=== PATIENT | female | born 1930 | race Caucasian/White ===

== ENCOUNTER 2017-01-23 19:30 | Observation (INO) ==
[2017-01-23] MEDS ORDERED: 0.9 % Sodium Chloride 1,000 ML IVC ONE (19:42)
[2017-01-23 20:02] LABS: Basophils % 0.9 %; Eosinophils # 0.1 K/mcL (0.0-0.6); Eosinophils % 1.5 %; Hematocrit 36.6 % (35.3-44.9); Hemoglobin 11.9 g/dL (11.5-15.4); Immature Granulocytes % 0.2 % (0-4); Lymphocytes # 1.2 K/mcL (0.6-4.6); Lymphocytes % 26.4 %; Mean Corpuscular HGB Conc 32.5 g/dL (31.6-35.5); Mean Corpuscular Hemoglobin 26.7 pg (28.0-33.3); Mean Corpuscular Volume 82.1 fL (83.0-100.0); Mean Platelet Volume 9.8 fL (9.4-12.4); Monocytes # 0.4 K/mcL (0.0-1.3); Monocytes % 8.9 %; Neutrophils # 2.9 K/mcL (1.6-8.9); Platelet Count 180 K/mcL (140-400); Red Blood Count 4.46 M/mcL (3.82-4.97); Red Cell Distribution Width 14.7 % (11.5-14.5); Segmented Neutrophils % 62.1 %
[2017-01-23 20:12] LABS: Bilirubin,Urine Negative (Negative); Blood,Urine Negative (Negative); Clarity,Urine Cloudy (Clear); Color,Urine Yellow (Yellow); Glucose,Urine (UA) Normal (Normal); Ketones,Urine Negative (Negative); Leukocyte Esterase,Urine Negative (Negative); Nitrite,Urine Negative (Negative); PH,Urine 5.5 pH Units (5.0-8.0); Protein,Urine 30 mg/dL (Neg-Trace); Specific Gravity,Urine 1.018 (1.010-1.025); Urobilinogen,Urine Normal (Normal)
[2017-01-23 20:14] LABS: Bacteria,Urine None Seen per hpf (None-Few); Hyaline Casts,Urine None Seen per lpf (None-Few); RBC,Urine 0-3 per hpf (0-3); Squamous Epithelial Cell,Urine Moderate per lpf (None-Few); WBC,Urine 0-3 per hpf (0-3)
[2017-01-23 20:15] LABS: Alanine Aminotransferase 14 Units/L (0-55); Albumin 3.8 g/dL (3.5-5.0); Albumin/Globulin Ratio 1.2 (1.1-2.2); Alkaline Phosphatase 81 Units/L (38-126); Aspartate Amino Transferase 19 Units/L (5-34); BUN/Creatinine Ratio 15 (6-26); Bilirubin,Direct 0.2 mg/dL (0.0-0.5); Bilirubin,Indirect -0.1 mg/dL (0.0-1.2); Blood Urea Nitrogen 18 mg/dL (7-20); Calcium 9.6 mg/dL (8.6-10.8); Carbon Dioxide 21 mEq/L (19-29); Chloride 107 mEq/L (98-109); Globulin 3.1 g/dL (2.4-3.5); Glucose 113 mg/dL (70-99); Osmolality,Calculated 291 (280-300); Potassium 3.5 mEq/L (3.5-4.5); Sodium 139 mEq/L (136-145); Total Protein 6.9 g/dL (6.0-8.3); eGFR For African Americans 50 (> 60); eGFR For Non-African Americans 41 (> 60)
[2017-01-23 20:17] LABS: Bilirubin,Total < 0.1 mg/dL (0.2-1.2)
[2017-01-23 20:18] LABS: Prothrombin Time 10.9 Seconds (9.4-12.1)
[2017-01-23 20:20] LABS: Amphetamine Screen,Urine Negative ng/mL (Cutoff=1000); Barbiturate Screen,Urine Negative ng/mL (Cutoff=200); Benzodiazepines Screen,Urine Negative ng/mL (Cutoff=200); Cannabinoid Screen,Urine Negative ng/mL (Cutoff = 50); Cocaine Screen,Urine Negative ng/mL (Cutoff= 300); Opiate Screen,Urine Negative ng/mL (Cutoff=300); Phencyclidine Screen,Urine Negative ng/mL (Cutoff=25)
[2017-01-23 20:21] LABS: Activated Partial Thrombo Time 30.4 Seconds (26.0-36.0)
[2017-01-23 20:38] LABS: Thyroid Stimulating Hormone 3.363 mcIU/mL (0.350-4.840)
[2017-01-23] MEDS ORDERED: Aspirin 325 MG TABLET PO ONE (20:46)
--- NOTE | 2017-01-23 20:47 | Emergency Department Note ---
Disposition Clinical Impression: TIA (transient ischemic attack) Qualifiers: Transient cerebral ischemia type: unspecified Qualified Code(s): G45.9 - Transient cerebral ischemic attack, unspecified Disposition: Admitted As Inpatient Condition: Fair Altered Mental Status HPI - General Stated Complaint: Slurred Speech Time Seen by Provider: 01/23/17 19:37 Source: patient, family, EMS Mode of arrival: EMS Limitations: altered mental status Nursing Notes Reviewed: Yes Vital Signs Reviewed: Yes - History of Present Illness HPI Narrative: Patient was a home today several hours before arrival to family members noted she was little confused. They state this happened several times in the past month or so should be confused or last several hours and go away. She never had a workup in the past for TIA or stroke. MD complaint: confusion Onset (ago): hour(s) (2) Timing confirmed by: family member Pain Severity: mild Consistency of Symptoms: waxing and waning Associated symptoms: Reports: denies other symptoms - Related Data Allergies Allergy/AdvReac Type Severity Reaction Status Date / Time Penicillins Allergy Hives Verified 01/23/17 20:42 acetaminophen AdvReac Nausea Verified 01/23/17 20:42 [From Darvocet-N] codeine AdvReac Nausea Verified 01/23/17 20:42 propoxyphene AdvReac Nausea Verified 01/23/17 20:42 [From Darvocet-N] All systems ED: reviewed and negative except as stated. Constitutional: Denies: fever, chills, weakness Gastrointestinal: Denies: abdominal pain, nausea Past Medical History - Past Medical History Source: patient, old records reviewed, obtained from family, nursing notes reviewed Physical Exam - General Limitations: no limitations General appearance: alert, in no apparent distress - Head Head exam: atraumatic, normocephalic, normal inspection - Eye Eye exam: Present: normal appearance, PERRL, EOMI - Expanded Eye Exam Pupils: Left: reactive - ENT ENT exam: normal exam, normal oropharynx, mucous membranes moist - Expanded ENT Exam External ear exam: Present: normal external inspection Mouth exam: Present: normal external inspection Teeth exam: Present: normal inspection Throat exam: Present: normal inspection - Neck Neck exam: Present: normal inspection, full ROM, trachea midline - Chest Chest inspection: Present: normal inspection, symmetric chest wall rise - Respiratory Respiratory exam: Present: normal lung sounds bilaterally - Cardiovascular Cardiovascular exam: Present: regular rate, normal rhythm, normal heart sounds - Abdominal Exam Abdominal exam: Present: soft, Non-Tender. Absent: tenderness, distention, guarding, rebound, rigidity - Extremities Exam Extremities exam: Present: normal inspection, full ROM. Absent: tenderness, pedal edema - Expanded Upper Extremity Exam Shoulder exam: Present: normal inspection, full ROM Arm exam: Present: normal inspection, full ROM Elbow exam: Present: normal inspection, full ROM Forearm/Wrist exam: Present: normal inspection, full ROM Hand exam: Present: normal inspection, full ROM Vascular exam: Normal: capillary refill, radial pulse - Expanded Lower Extremity Exam Hip/Pelvis exam: Present: normal inspection, full ROM Upper leg exam: Present: normal inspection, full ROM Knee exam: Present: normal inspection, full ROM Lower leg exam: Present: normal inspection, full ROM Ankle exam: Present: normal inspection, full ROM Foot/toe exam: Present: normal inspection, full ROM Neurovascular/Tendon exam: Absent: motor deficit, sensory deficit, tendon deficit - Back Exam Back exam: Present: normal inspection, full ROM. Absent: tenderness - Neurological Exam Neurological exam: Present: alert, CN II-XII intact - Expanded Neurological Exam Patient oriented to: Present: person Cranial nerves: EOM function (II, III, IV, ): Normal, facial sensation (V): Normal, facial palsy (VII): Normal, gag reflex (IX): Normal, spinal accessory function (XI): Normal, tongue deviation (XII): Normal Motor strength - LUE: 5/5 Motor strength - RUE: 5/5 Motor strength - LLE: 5/5 Motor strength - RLE: 5/5 Coma Scale Eye Opening: Spontaneous Coma Scale Motor Response: Obeys Commands Coma Scale Verbal Response: Oriented Coma Scale Total: 15 - Psychiatric Psychiatric exam: Present: normal affect, normal mood - Skin Skin exam: Present: warm, dry, intact, normal color Course - Reevaluation(s) Reevaluation #1: Asians cognition returned to baseline during her ED stay gave her aspirin omit her to the hospital service for TIA workup Time: 21:21 Vital Signs Temperature 98.6 F 01/23/17 21:06 Pulse Rate 36 01/23/17 21:06 Respiratory Rate 16 01/23/17 21:06 Blood Pressure 191/96 01/23/17 21:06 O2 Sat by Pulse Oximetry 94 05/16/17 21:06 Temperature 98.6 F 01/23/17 21:06 Pulse Rate 36 01/23/17 21:06 Respiratory Rate 16 01/23/17 21:06 Blood Pressure 191/96 01/23/17 21:06 O2 Sat by Pulse Oximetry 94 01/23/17 21:06 Oxygen Delivery Oxygen Delivery Room Air Altered Mental Status - Differential Diagnosis Likely: altered mental status, delirium, dementia, hypoglycemia, hyponatremia, subarachnoid hemorrhage, sepsis - Medical Records Medical records reviewed: Yes I reviewed the patient's medical records. - Lab Data Lab results reviewed: Yes I reviewed the patient's lab results. Result diagrams: 01/23/17 19:50 01/23/17 19:50 Lab Results 01/23/17 01/23/17 01/23/17 Range/Units 19:39 19:50 19:50 WBC 4.7 (4.3-11.1) K/mcL RBC 4.46 (3.82-4.97) M/mcL Hgb 11.9 (11.5-15.4) g/dL Hct 36.6 (35.3-44.9) % MCV 82.1 L (83.0-100.0) fL MCH 26.7 L (28.0-33.3) pg MCHC 32.5 (31.6-35.5) g/dL RDW 14.7 H (11.5-14.5) % Plt Count 180 (140-400) K/mcL MPV 9.8 (9.4-12.4) fL Immature Gran % 0.2 (0-4) % Seg Neutrophils % 62.1 % Lymphocytes % 26.4 % Monocytes % 8.9 % Eosinophils % 1.5 % Basophils % 0.9 % Neutrophils # 2.9 (1.6-8.9) K/mcL Lymphocytes # 1.2 (0.6-4.6) K/mcL Monocytes # 0.4 (0.0-1.3) K/mcL Eosinophils # 0.1 (0.0-0.6) K/mcL Basophils # 0.0 (0.0-0.2) K/mcL PT 10.9 (9.4-12.1) Seconds INR 1.0 APTT 30.4 (26.0-36.0) Seconds Sodium (136-145) mEq/L Potassium (3.5-4.5) mEq/L Chloride (98-109) mEq/L Carbon Dioxide (19-29) mEq/L BUN (7-20) mg/dL Creatinine (0.57-1.11) mg/dL Est GFR ( Amer) (> 60) Est GFR (Non-Af Amer) (> 60) BUN/Creatinine Ratio (6-26) Glucose (70-99) mg/dL POC Glucose 103 H (58-89) Calculated Osmolality (280-300) Calcium (8.6-10.8) mg/dL Total Bilirubin (0.2-1.2) mg/dL Direct Bilirubin (0.0-0.5) mg/dL Indirect Bilirubin (0.0-1.2) mg/dL AST (5-34) Units/L ALT (0-55) Units/L Alkaline Phosphatase (38-126) Units/L Troponin I (0-0.03) ng/mL Serum Total Protein (6.0-8.3) g/dL Albumin (3.5-5.0) g/dL Globulin (2.4-3.5) g/dL Albumin/Globulin Ratio (1.1-2.2) TSH (0.350-4.840) mcIU/mL Urine Color (Yellow) Urine Clarity (Clear) Urine pH (5.0-8.0) pH Units Ur Specific [place] (1.010-1.025) Urine Protein (Neg-Trace) mg/dL Urine Glucose (UA) (Normal) mg/dL Urine Ketones (Negative) mg/dL Urine Blood (Negative) Urine Nitrite (Negative) Urine Bilirubin (Negative) Urine Urobilinogen (Normal) mg/dL Ur Leukocyte Esterase (Negative) Urine Microscopic RBC (0-3) per hpf Urine Microscopic WBC (0-3) per hpf Ur Squamous Epith Cells (None-Few) per lpf Urine Bacteria (None-Few) per hpf Hyaline Casts (None-Few) per lpf Ur Culture Indicated? (NO) Urine Opiates Screen (Caumrb=504) ng/mL Ur Barbiturates Screen (Cacasy=592) ng/mL Ur Phencyclidine Scrn (Cutoff=25) ng/mL Ur Amphetamines Screen (Vbwjwo=0363) ng/mL U Benzodiazepines Scrn (Ucyfxo=221) ng/mL Urine Cocaine Screen (Cutoff= 300) ng/mL U Marijuana (THC) Screen (Cutoff = 50) ng/mL 01/23/17 01/23/17 01/23/17 Range/Units 19:50 19:50 19:57 WBC (4.3-11.1) K/mcL RBC (3.82-4.97) M/mcL Hgb (11.5-15.4) g/dL Hct (35.3-44.9) % MCV (83.0-100.0) fL MCH (28.0-33.3) pg MCHC (31.6-35.5) g/dL RDW (11.5-14.5) % Plt Count (140-400) K/mcL MPV (9.4-12.4) fL Immature Gran % (0-4) % Seg Neutrophils % % Lymphocytes % % Monocytes % % Eosinophils % % Basophils % % Neutrophils # (1.6-8.9) K/mcL Lymphocytes # (0.6-4.6) K/mcL Monocytes # (0.0-1.3) K/mcL Eosinophils # (0.0-0.6) K/mcL Basophils # (0.0-0.2) K/mcL PT (9.4-12.1) Seconds INR APTT (26.0-36.0) Seconds Sodium 139 (136-145) mEq/L Potassium 3.5 (3.5-4.5) mEq/L Chloride 107 (98-109) mEq/L Carbon Dioxide 21 (19-29) mEq/L BUN 18 (7-20) mg/dL Creatinine 1.23 H (0.57-1.11) mg/dL Est GFR ( Amer) 50 L (> 60) Est GFR (Non-Af Amer) 41 L (> 60) BUN/Creatinine Ratio 15 (6-26) Glucose 113 H (70-99) mg/dL POC Glucose (58-89) Calculated Osmolality 291 (280-300) Calcium 9.6 (8.6-10.8) mg/dL Total Bilirubin < 0.1 L (0.2-1.2) mg/dL Direct Bilirubin 0.2 (0.0-0.5) mg/dL Indirect Bilirubin -0.1 L (0.0-1.2) mg/dL AST 19 (5-34) Units/L ALT 14 (0-55) Units/L Alkaline Phosphatase 81 (38-126) Units/L Troponin I 0.00 (0-0.03) ng/mL Serum Total Protein 6.9 (6.0-8.3) g/dL Albumin 3.8 (3.5-5.0) g/dL Globulin 3.1 (2.4-3.5) g/dL Albumin/Globulin Ratio 1.2 (1.1-2.2) TSH 3.363 (0.350-4.840) mcIU/mL Urine Color Yellow (Yellow) Urine Clarity Cloudy A (Clear) Urine pH 5.5 (5.0-8.0) pH Units Ur Specific [place] 1.018 (1.010-1.025) Urine Protein 30 H (Neg-Trace) mg/dL Urine Glucose (UA) Normal (Normal) mg/dL Urine Ketones Negative (Negative) mg/dL Urine Blood Negative (Negative) Urine Nitrite Negative (Negative) Urine Bilirubin Negative (Negative) Urine Urobilinogen Normal (Normal) mg/dL Ur Leukocyte Esterase Negative (Negative) Urine Microscopic RBC 0-3 (0-3) per hpf Urine Microscopic WBC 0-3 (0-3) per hpf Ur Squamous Epith Cells Moderate H (None-Few) per lpf Urine Bacteria None Seen (None-Few) per hpf Hyaline Casts None Seen (None-Few) per lpf Ur Culture Indicated? NO (NO) Urine Opiates Screen (Eehfmu=578) ng/mL Ur Barbiturates Screen (Fxvmdu=902) ng/mL Ur Phencyclidine Scrn (Cutoff=25) ng/mL Ur Amphetamines Screen (Csvysf=9604) ng/mL U Benzodiazepines Scrn (Nkswco=496) ng/mL Urine Cocaine Screen (Cutoff= 300) ng/mL U Marijuana (THC) Screen (Cutoff = 50) ng/mL 01/23/17 Range/Units 19:57 WBC (4.3-11.1) K/mcL RBC (3.82-4.97) M/mcL Hgb (11.5-15.4) g/dL Hct (35.3-44.9) % MCV (83.0-100.0) fL MCH (28.0-33.3) pg MCHC (31.6-35.5) g/dL RDW (11.5-14.5) % Plt Count (140-400) K/mcL MPV (9.4-12.4) fL Immature Gran % (0-4) % Seg Neutrophils % % Lymphocytes % % Monocytes % % Eosinophils % % Basophils % % Neutrophils # (1.6-8.9) K/mcL Lymphocytes # (0.6-4.6) K/mcL Monocytes # (0.0-1.3) K/mcL Eosinophils # (0.0-0.6) K/mcL Basophils # (0.0-0.2) K/mcL PT (9.4-12.1) Seconds INR APTT (26.0-36.0) Seconds Sodium (136-145) mEq/L Potassium (3.5-4.5) mEq/L Chloride (98-109) mEq/L Carbon Dioxide (19-29) mEq/L BUN (7-20) mg/dL Creatinine (0.57-1.11) mg/dL Est GFR ( Amer) (> 60) Est GFR (Non-Af Amer) (> 60) BUN/Creatinine Ratio (6-26) Glucose (70-99) mg/dL POC Glucose (58-89) Calculated Osmolality (280-300) Calcium (8.6-10.8) mg/dL Total Bilirubin (0.2-1.2) mg/dL Direct Bilirubin (0.0-0.5) mg/dL Indirect Bilirubin (0.0-1.2) mg/dL AST (5-34) Units/L ALT (0-55) Units/L Alkaline Phosphatase (38-126) Units/L Troponin I (0-0.03) ng/mL Serum Total Protein (6.0-8.3) g/dL Albumin (3.5-5.0) g/dL Globulin (2.4-3.5) g/dL Albumin/Globulin Ratio (1.1-2.2) TSH (0.350-4.840) mcIU/mL Urine Color (Yellow) Urine Clarity (Clear) Urine pH (5.0-8.0) pH Units Ur Specific [place] (1.010-1.025) Urine Protein (Neg-Trace) mg/dL Urine Glucose (UA) (Normal) mg/dL Urine Ketones (Negative) mg/dL Urine Blood (Negative) Urine Nitrite (Negative) Urine Bilirubin (Negative) Urine Urobilinogen (Normal) mg/dL Ur Leukocyte Esterase (Negative) Urine Microscopic RBC (0-3) per hpf Urine Microscopic WBC (0-3) per hpf Ur Squamous Epith Cells (None-Few) per lpf Urine Bacteria (None-Few) per hpf Hyaline Casts (None-Few) per lpf Ur Culture Indicated? (NO) Urine Opiates Screen Negative (Qwqadd=432) ng/mL Ur Barbiturates Screen Negative (Frkncf=839) ng/mL Ur Phencyclidine Scrn Negative (Cutoff=25) ng/mL Ur Amphetamines Screen Negative (Atojoa=6396) ng/mL U Benzodiazepines Scrn Negative (Agbilk=764) ng/mL Urine Cocaine Screen Negative (Cutoff= 300) ng/mL U Marijuana (THC) Screen Negative (Cutoff = 50) ng/mL - Radiology Data Radiology results reviewed: Yes I reviewed the patient's radiology results. - EKG Data EKG attestation: Yes I reviewed and interpreted this EKG. EKG shows normal: sinus rhythm Rate: normal (72) Rhythm: NSR Interpretation: nonspecific ST-T wave changes TPA Checklist - LKW: 3-4.5 hrs Add. Contraindications Patient/family understanding: The patient/family members have been counseled and understood the risk, benefit , and alternatives of treatment.
[2017-01-23] MEDS ORDERED: *HR* Labetalol 20 MG/4 ML SYRINGE IVP ONE (21:12)
[2017-01-23] MEDS ORDERED: Ondansetron 4 MG/2 ML VIAL IVP ONE (21:22)
[2017-01-23] MEDS ORDERED: Acetaminophen 325 MG TABLET PO PRN (22:27)
[2017-01-23] MEDS ORDERED: Naloxone 0.4 MG/ML INJ IVP PRN (22:27)
[2017-01-23] MEDS ORDERED: 0.9 % Sodium Chloride 1,000 ML IVC SCH (22:30)
--- NOTE | 2017-01-23 22:36 | Internal Med History&Physical ---
Date of Encounter: 01/23/17 Time of Encounter: 22:36 Assessment and Plan (1) TIA (transient ischemic attack) Current visit: Yes Status: Acute Patient reports episode of confusion and garbled speech after working outside in the sun earlier today. Symptoms have resolved. CT Head shows atrophy and moderate small vessel ischemic disease, but no acute intracranial abnormality. On exam, no pronator drift, strength equal bilaterally, cranial nerves intact, patient alert and oriented 3 with fluent speech. MRI head/brain bilateral carotid dopplers echocardiogram lipid panel with morning labs aspirin 81mg daily neurology consult. Qualifiers: Transient cerebral ischemia type: unspecified Qualified Code(s): G45.9 - Transient cerebral ischemic attack, unspecified (2) Hypertension Current visit: Yes Status: Acute Blood pressure elevated to 180s/80s. Continue home does of metoprolol. Qualifiers: Hypertension type: essential hypertension Qualified Code(s): I10 - Essential (primary) hypertension (3) CKD (chronic kidney disease) Current visit: Yes Status: Acute Patient reports history of CKD. No labs available for baseline. Cr of 1.23. 1L fluid bolus given in ED. 0.9NS at 75mL/hr. Recheck chemistry in the morning. Qualifiers: Chronic kidney disease stage: unspecified stage Qualified Code(s): N18.9 - Chronic kidney disease, unspecified (4) DVT prophylaxis Current visit: Yes Status: Acute anti-embolic stockings heparin 5000u SQ TID Internal Medicine - H&P: HPI Chief complaint: confusion, speech problem Admitted From: Emergency Dept Plans for Post Hospital Care: Home History of present illness: Ms. Diaz is a 86 year old female with hypertension, hypothyroid, coronary artery disease status post CABG in 2007, CKD who presented to the emergency department today with complaints of confusion and slurred speech. She reports yesterday and today she was working outside in her garden digging holes and planting tomato plants. She came inside today and a friend came over and patient reports she felt confused and like she could not understand anything her friend was saying. When she went to speak only mumbles came out and she was not able to articulate any words. Her symptoms resolved by the time she got to the emergency department. She denies any headache, lightheadedness, chest pain, palpitations, shortness of breath. She denies any fever, chills, sweats, body aches. Evaluation in the emergency department included a CT of the head which just showed atrophy and moderate small vessel ischemic disease, no acute intracranial abnormality. Chest x-ray showed no significant pulmonary findings. Creatinine was elevated at 1.23, consistent with her history of kidney disease. Troponin was negative at 0.00. EKG showed normal sinus rhythm. On exam, patient alert and oriented, in no acute distress. Speech was fluid, strength equal bilaterally, no pronator drift, cranial nerves intact. Past Med Surg Social Fam HX - Past Medical History Medical history: asthma, coronary artery disease, fibromyalgia, hypertension, kidney stones, renal disease, thyroid disease Psychiatric history: no psych history - Past Surgical History Surgical History: coronary bypass (CABG), hip replacement, hysterectomy - Social History Smoking Status: Former smoker Smokeless Tobacco Status: No Alcohol use: none Drug use: none - Family History Father Living Status: Age at : 86 Hx Family Endocrine Disorder: Yes (DM) Mother Hx Family Cancer: Yes (SPINAL) Internal Medicine - H&P: Meds Levothyroxine [Synthroid] 112 mcg PO QAM 01/23/17 [History] Metoprolol [Lopressor] 25 mg PO BID 01/23/17 [History] Allergies Penicillins Allergy (Verified 01/23/17 20:42) Hives acetaminophen [From Darvocet-N] Adverse Reaction (Verified 01/23/17 20:42) Nausea codeine Adverse Reaction (Verified 01/23/17 20:42) Nausea propoxyphene [From Darvocet-N] Adverse Reaction (Verified 01/23/17 20:42) Nausea All Systems PM: A 10-system review of systems was performed and is negative for pertinent findings except as documented above in the HPI. - Constitutional Constitutional: no chills, no fever(s), no night sweats - EENT Eyes: no change in vision, no discharge, no pain, no photophobia Ears: no ear discharge, no ear pain, no tinnitus Nose, mouth and throat: no dysphagia, no nasal discharge, no neck pain, no sore throat - Cardiovascular Cardiovascular ROS IM: no chest pain, no diaphoresis, no dyspnea, no lightheadedness, no palpitations, no syncope - Respiratory Respiratory: no cough, no dyspnea, no wheezing, no excessive phlegm production - Gastrointestinal Gastrointestinal: no abdominal pain, no diarrhea, no hematemesis, no hematochezia, no melena, no nausea, no vomiting - Genitourinary Genitourinary: no change in urinary stream, no dysuria, no flank pain, no hematuria - Musculoskeletal Musculoskeletal ROS IM: no numbness, no tingling - Integumentary Integumentary IM: no rash, no unusual bruising - Neurological Neurological ROS: abnormal speech, confusion, no convulsions, no focal weakness , no numbness, no tingling, no tremor(s) - Hematologic/Lymphatic Hematologic/Lymphatic: no easy bruising - Constitutional Vitals: Temp Pulse Resp BP Pulse Ox 98.6 F 73 18 184/82 92 01/23/17 21:06 01/23/17 21:32 01/23/17 21:48 01/23/17 21:48 01/23/17 21:32 General appearance: Present: A&O X 3 - Head Head exam: Present: atraumatic, normocephalic - Eye Eye exam: Present: PERRL, conjuntiva pink, sclera anicteric Pupils: Present: PERRL - Neck Neck exam general surgery: Present: supple, trachea midline. Absent: lymphadenopathy - Respiratory Respiratory exam: Present: CTAB. Absent: accessory muscle use, rales, rhonchi, wheezes - Cardiovascular Cardiovascular exam: Present: RRR, +S1, +S2. Absent: diastolic murmur, gallop, rubs, systolic murmur - GI/Abdominal GI/Abdominal exam: Present: normal bowel sounds, soft, no peritoneal signs. Absent: distended, tenderness - Extremities Exam Extremities exam: Present: warm, radial pulses palpable and symetrical. Absent : calf tenderness, cyanotic, pedal edema - Neurological Exam Neurological exam: Present: CN II-XII intact, oriented X3, no focal deficits. Absent: pronater drift, facial droop, speech deficit - Skin Skin exam: Present: dry, intact Internal Med - H&P Results - Labs CBC & Chem 7: 01/23/17 19:50 01/23/17 19:50 Labs: All Lab Results (24 Hours) 01/23/17 01/23/17 01/23/17 Range/Units 19:39 19:50 19:50 WBC 4.7 (4.3-11.1) K/mcL RBC 4.46 (3.82-4.97) M/mcL Hgb 11.9 (11.5-15.4) g/dL Hct 36.6 (35.3-44.9) % MCV 82.1 L (83.0-100.0) fL MCH 26.7 L (28.0-33.3) pg MCHC 32.5 (31.6-35.5) g/dL RDW 14.7 H (11.5-14.5) % Plt Count 180 (140-400) K/mcL MPV 9.8 (9.4-12.4) fL Immature Gran % 0.2 (0-4) % Seg Neutrophils % 62.1 % Lymphocytes % 26.4 % Monocytes % 8.9 % Eosinophils % 1.5 % Basophils % 0.9 % Neutrophils # 2.9 (1.6-8.9) K/mcL Lymphocytes # 1.2 (0.6-4.6) K/mcL Monocytes # 0.4 (0.0-1.3) K/mcL Eosinophils # 0.1 (0.0-0.6) K/mcL Basophils # 0.0 (0.0-0.2) K/mcL PT 10.9 (9.4-12.1) Seconds INR 1.0 APTT 30.4 (26.0-36.0) Seconds Sodium (136-145) mEq/L Potassium (3.5-4.5) mEq/L Chloride (98-109) mEq/L Carbon Dioxide (19-29) mEq/L BUN (7-20) mg/dL Creatinine (0.57-1.11) mg/dL Est GFR ( Amer) (> 60) Est GFR (Non-Af Amer) (> 60) BUN/Creatinine Ratio (6-26) Glucose (70-99) mg/dL POC Glucose 103 H (58-89) Calculated Osmolality (280-300) Calcium (8.6-10.8) mg/dL Total Bilirubin (0.2-1.2) mg/dL Direct Bilirubin (0.0-0.5) mg/dL Indirect Bilirubin (0.0-1.2) mg/dL AST (5-34) Units/L ALT (0-55) Units/L Alkaline Phosphatase (38-126) Units/L Troponin I (0-0.03) ng/mL Serum Total Protein (6.0-8.3) g/dL Albumin (3.5-5.0) g/dL Globulin (2.4-3.5) g/dL Albumin/Globulin Ratio (1.1-2.2) TSH (0.350-4.840) mcIU/mL Urine Color (Yellow) Urine Clarity (Clear) Urine pH (5.0-8.0) pH Units Ur Specific [place] (1.010-1.025) Urine Protein (Neg-Trace) mg/dL Urine Glucose (UA) (Normal) mg/dL Urine Ketones (Negative) mg/dL Urine Blood (Negative) Urine Nitrite (Negative) Urine Bilirubin (Negative) Urine Urobilinogen (Normal) mg/dL Ur Leukocyte Esterase (Negative) Urine Microscopic RBC (0-3) per hpf Urine Microscopic WBC (0-3) per hpf Ur Squamous Epith Cells (None-Few) per lpf Urine Bacteria (None-Few) per hpf Hyaline Casts (None-Few) per lpf Ur Culture Indicated? (NO) Urine Opiates Screen (Qahuaz=496) ng/mL Ur Barbiturates Screen (Pxautd=440) ng/mL Ur Phencyclidine Scrn (Cutoff=25) ng/mL Ur Amphetamines Screen (Bdawlc=0989) ng/mL U Benzodiazepines Scrn (Tpjeyh=309) ng/mL Urine Cocaine Screen (Cutoff= 300) ng/mL U Marijuana (THC) Screen (Cutoff = 50) ng/mL 01/23/17 01/23/17 01/23/17 Range/Units 19:50 19:50 19:57 WBC (4.3-11.1) K/mcL RBC (3.82-4.97) M/mcL Hgb (11.5-15.4) g/dL Hct (35.3-44.9) % MCV (83.0-100.0) fL MCH (28.0-33.3) pg MCHC (31.6-35.5) g/dL RDW (11.5-14.5) % Plt Count (140-400) K/mcL MPV (9.4-12.4) fL Immature Gran % (0-4) % Seg Neutrophils % % Lymphocytes % % Monocytes % % Eosinophils % % Basophils % % Neutrophils # (1.6-8.9) K/mcL Lymphocytes # (0.6-4.6) K/mcL Monocytes # (0.0-1.3) K/mcL Eosinophils # (0.0-0.6) K/mcL Basophils # (0.0-0.2) K/mcL PT (9.4-12.1) Seconds INR APTT (26.0-36.0) Seconds Sodium 139 (136-145) mEq/L Potassium 3.5 (3.5-4.5) mEq/L Chloride 107 (98-109) mEq/L Carbon Dioxide 21 (19-29) mEq/L BUN 18 (7-20) mg/dL Creatinine 1.23 H (0.57-1.11) mg/dL Est GFR ( Amer) 50 L (> 60) Est GFR (Non-Af Amer) 41 L (> 60) BUN/Creatinine Ratio 15 (6-26) Glucose 113 H (70-99) mg/dL POC Glucose (58-89) Calculated Osmolality 291 (280-300) Calcium 9.6 (8.6-10.8) mg/dL Total Bilirubin < 0.1 L (0.2-1.2) mg/dL Direct Bilirubin 0.2 (0.0-0.5) mg/dL Indirect Bilirubin -0.1 L (0.0-1.2) mg/dL AST 19 (5-34) Units/L ALT 14 (0-55) Units/L Alkaline Phosphatase 81 (38-126) Units/L Troponin I 0.00 (0-0.03) ng/mL Serum Total Protein 6.9 (6.0-8.3) g/dL Albumin 3.8 (3.5-5.0) g/dL Globulin 3.1 (2.4-3.5) g/dL Albumin/Globulin Ratio 1.2 (1.1-2.2) TSH 3.363 (0.350-4.840) mcIU/mL Urine Color Yellow (Yellow) Urine Clarity Cloudy A (Clear) Urine pH 5.5 (5.0-8.0) pH Units Ur Specific [place] 1.018 (1.010-1.025) Urine Protein 30 H (Neg-Trace) mg/dL Urine Glucose (UA) Normal (Normal) mg/dL Urine Ketones Negative (Negative) mg/dL Urine Blood Negative (Negative) Urine Nitrite Negative (Negative) Urine Bilirubin Negative (Negative) Urine Urobilinogen Normal (Normal) mg/dL Ur Leukocyte Esterase Negative (Negative) Urine Microscopic RBC 0-3 (0-3) per hpf Urine Microscopic WBC 0-3 (0-3) per hpf Ur Squamous Epith Cells Moderate H (None-Few) per lpf Urine Bacteria None Seen (None-Few) per hpf Hyaline Casts None Seen (None-Few) per lpf Ur Culture Indicated? NO (NO) Urine Opiates Screen (Dacuxk=044) ng/mL Ur Barbiturates Screen (Zcsgqh=468) ng/mL Ur Phencyclidine Scrn (Cutoff=25) ng/mL Ur Amphetamines Screen (Wuepfx=2481) ng/mL U Benzodiazepines Scrn (Fuhprm=050) ng/mL Urine Cocaine Screen (Cutoff= 300) ng/mL U Marijuana (THC) Screen (Cutoff = 50) ng/mL 01/23/17 Range/Units 19:57 WBC (4.3-11.1) K/mcL RBC (3.82-4.97) M/mcL Hgb (11.5-15.4) g/dL Hct (35.3-44.9) % MCV (83.0-100.0) fL MCH (28.0-33.3) pg MCHC (31.6-35.5) g/dL RDW (11.5-14.5) % Plt Count (140-400) K/mcL MPV (9.4-12.4) fL Immature Gran % (0-4) % Seg Neutrophils % % Lymphocytes % % Monocytes % % Eosinophils % % Basophils % % Neutrophils # (1.6-8.9) K/mcL Lymphocytes # (0.6-4.6) K/mcL Monocytes # (0.0-1.3) K/mcL Eosinophils # (0.0-0.6) K/mcL Basophils # (0.0-0.2) K/mcL PT (9.4-12.1) Seconds INR APTT (26.0-36.0) Seconds Sodium (136-145) mEq/L Potassium (3.5-4.5) mEq/L Chloride (98-109) mEq/L Carbon Dioxide (19-29) mEq/L BUN (7-20) mg/dL Creatinine (0.57-1.11) mg/dL Est GFR ( Amer) (> 60) Est GFR (Non-Af Amer) (> 60) BUN/Creatinine Ratio (6-26) Glucose (70-99) mg/dL POC Glucose (58-89) Calculated Osmolality (280-300) Calcium (8.6-10.8) mg/dL Total Bilirubin (0.2-1.2) mg/dL Direct Bilirubin (0.0-0.5) mg/dL Indirect Bilirubin (0.0-1.2) mg/dL AST (5-34) Units/L ALT (0-55) Units/L Alkaline Phosphatase (38-126) Units/L Troponin I (0-0.03) ng/mL Serum Total Protein (6.0-8.3) g/dL Albumin (3.5-5.0) g/dL Globulin (2.4-3.5) g/dL Albumin/Globulin Ratio (1.1-2.2) TSH (0.350-4.840) mcIU/mL Urine Color (Yellow) Urine Clarity (Clear) Urine pH (5.0-8.0) pH Units Ur Specific [place] (1.010-1.025) Urine Protein (Neg-Trace) mg/dL Urine Glucose (UA) (Normal) mg/dL Urine Ketones (Negative) mg/dL Urine Blood (Negative) Urine Nitrite (Negative) Urine Bilirubin (Negative) Urine Urobilinogen (Normal) mg/dL Ur Leukocyte Esterase (Negative) Urine Microscopic RBC (0-3) per hpf Urine Microscopic WBC (0-3) per hpf Ur Squamous Epith Cells (None-Few) per lpf Urine Bacteria (None-Few) per hpf Hyaline Casts (None-Few) per lpf Ur Culture Indicated? (NO) Urine Opiates Screen Negative (Avkyia=238) ng/mL Ur Barbiturates Screen Negative (Jbfwcr=918) ng/mL Ur Phencyclidine Scrn Negative (Cutoff=25) ng/mL Ur Amphetamines Screen Negative (Iuwzfo=3768) ng/mL U Benzodiazepines Scrn Negative (Jcglxf=124) ng/mL Urine Cocaine Screen Negative (Cutoff= 300) ng/mL U Marijuana (THC) Screen Negative (Cutoff = 50) ng/mL - Diagnostic Studies CT scan - head Additional comments: Head CT 01/23/17 19:42 IMPRESSION: Atrophy and moderate small vessel ischemic disease. Paranasal sinus disease. D/ / Silas Gonzalez MD / Silas Gonzalez MD Interpreting Provider: Silas Gonzalez MD Chest x-ray Additional comments: Chest X-Ray 01/23/17 19:42 IMPRESSION: No significant pulmonary findings. D/ / Chris Gonzalez MD / Chris Gonzalez MD Interpreting Provider: Chris Gonzalez MD
[2017-01-23] MEDS ORDERED: Ipratropium/Albuterol Neb 3 ML IH PRN (22:50)
[2017-01-24 06:31] LABS: Basophils % 0.2 %; Eosinophils % 0.8 %; Hematocrit 32.8 % (35.3-44.9); Hemoglobin 10.7 g/dL (11.5-15.4); Immature Granulocytes % 0.8 % (0-4); Lymphocytes # 1.1 K/mcL (0.6-4.6); Lymphocytes % 20.6 %; Mean Corpuscular HGB Conc 32.6 g/dL (31.6-35.5); Mean Corpuscular Hemoglobin 26.9 pg (28.0-33.3); Mean Corpuscular Volume 82.4 fL (83.0-100.0); Mean Platelet Volume 9.8 fL (9.4-12.4); Monocytes # 0.5 K/mcL (0.0-1.3); Monocytes % 9.2 %; Neutrophils # 3.7 K/mcL (1.6-8.9); Platelet Count 142 K/mcL (140-400); Red Blood Count 3.98 M/mcL (3.82-4.97); Red Cell Distribution Width 14.7 % (11.5-14.5); Segmented Neutrophils % 68.4 %
[2017-01-24 06:45] LABS: BUN/Creatinine Ratio 14 (6-26); Blood Urea Nitrogen 14 mg/dL (7-20); Calcium 8.6 mg/dL (8.6-10.8); Carbon Dioxide 26 mEq/L (19-29); Chloride 110 mEq/L (98-109); Chol/HDL Ratio 4.1 (0-4.9); Cholesterol 122 mg/dL (< 200); Glucose 93 mg/dL (70-99); HDL Cholesterol 30 mg/dL (40-59); LDL Cholesterol,Calculated 74 mg/dL (0-99); Osmolality,Calculated 292 (280-300); Potassium 3.1 mEq/L (3.5-4.5); Sodium 141 mEq/L (136-145); Triglycerides 91 mg/dL (< 150); eGFR For African Americans > 60 (> 60); eGFR For Non-African Americans 51 (> 60)
[2017-01-24] MEDS ORDERED: Aspirin 81 MG TAB.CHEW PO SCH (09:00)
--- NOTE | 2017-01-24 10:46 | ECHO - Doppler Report ---
Echo with Saline Contrast Name: Rhoda Diaz Date of Study: 01/24/2017 Date: 1930 Ht: 64.0 in Medical Record#: [id number] Age: 86 Wt: 137.0 lb Gender: Female BSA: 1.67 Order #: [id number] Location: [facility] Room #: [id number] Reading Physician: Lucien Chatman MD, [facility] Health Care Coordinator: Reginald Peña [facility] Ordering Physician: Zayra Calle CNP Primary Physician: Destiney Parisi MD Indications: Transient Ischemic Attack Impressions: Normal LV systolic function, LVEF 65%. Mild concentric left ventricular hypertrophy. Moderate left ventricular diastolic dysfunction. Normal right ventricular size and function. Mildly dilated left atrium. Mild mitral regurgitation. Mild tricuspid regurgitation. Mild pulmonary hypertension. Estimated RVSP = 36 mmHg. No evidence of intracardiac shunting with agitated saline contrast. Left Ventricular Wall Motion: Rest Echo Findings All wall segments showed normal motion. Findings: Study Quality * Technically adequate exam. ECG Findings * Sinus rhythm with occasional PACs. Left Ventricle * Normal LV systolic function, LVEF 65%. * Normal LV chamber size. * Mild concentric left ventricular hypertrophy. * Moderate left ventricular diastolic dysfunction. Right Ventricle * Normal right ventricular size and function. Left Atrium * Mildly dilated left atrium. Right Atrium * Normal right atrial size. Interatrial Septum * No evidence of intracardiac shunting with agitated saline contrast. Aorta * Normally sized aortic root. Pericardium * There is no pericardial effusion present. IVC * Normal IVC dimensions and inspiratory collapse. Aortic Valve * Aortic valve not well visualized. Appears mildly sclerotic. * No aortic stenosis. * No aortic regurgitation. Mitral Valve * Mild mitral annular calcification * No mitral stenosis. * Mild mitral regurgitation. Tricuspid Valve * Normal tricuspid valve structure. * No tricuspid stenosis. * Mild tricuspid regurgitation. * Mild pulmonary hypertension. Estimated RVSP = 36 mmHg. Pulmonic Valve * Pulmonic valve not well visualized. * No pulmonic stenosis. * Trace pulmonic regurgitation. History Hypertension History of CAD/PTCA Coronary Artery Bypass Graft Contrast: Agitated saline 20 ml. Measurements: BP: 128/ 64 2D Normal Values RVIDd: 2.37 cm <2.7 cm IVSd: 1.29 cm 0.6 - 1.0 cm LVIDd: 4.27 cm 3.7 - 5.6 cm LVPWd: 1.19 cm 0.6 - 1.1 cm LVIDs: 2.72 cm 1.5 - 3.6 cm AO: 2.90 cm < 4.0 cm %FS: 36.30 cm >25 % LA volume: 60 Mitral Valve Peak E:.83 m/sec Peak A:.90 m/sec E/A Ratio:0.9 Peak E' Lat Rj:7.51 cm/s Peak E' Med Rj:5.87 cm/s E/E' Lat Ratio:11 E/E' Med Ratio:14.1 Tricuspid Valve TV Regurg Peak Grad: 33.00mmHg TV Regurg Peak Rj: 2.90m/sec Updated by Lucien Chatman MD, [facility] on 01/24/2017 10:40:31 AM electronically signed on 01/24/2017 10:41:07 AM with status of Final Wall Motion Caballero: 1=Normal, 2=Hypokinesis, 3=Akinesis, 4=Dyskinesis, 5=Aneurysmal, 6=Hyperkinetic, X=Not Visualized (Blank)=Missing
--- NOTE | 2017-01-24 11:35 | Neurology - Consult Note ---
Date of Encounter: 01/24/17 Time of Encounter: 10:40 Assessment and Plan (1) TIA (transient ischemic attack) Current Visit: Yes Status: Acute TIA vs. dehydration and transient heat exhaustion. The patient has no history of stroke. Currently denying slurring of her speech. Difficulty with word finding and comprehension at the time of her symptoms. Head CT: Atrophy and moderate small vessel ischemic disease as well as paranasal sinus disease. EKG: NSR UA: negative Utox: negative She has been started on ASA 81mg daily. Continue. Echo cardiogram, carotid duplex, and MRI of the brain performed this morning. Results pending, will follow. Creatinine 1.23 on arrival. Improved to 1.02 after 1L bolus in the ER with maintenance. Troponins were 0.00 Qualifiers: Transient cerebral ischemia type: unspecified Qualified Code(s): G45.9 - Transient cerebral ischemic attack, unspecified History of Present Illness Chief complaint: slurred speech HPI: Ms. Diaz is a 86 year old female with PMH significant for hypertension, chronic kidney disease, hypothyroidism, and CAD status post CABG 2007 who presented to [facility] for difficulty with speaking on 01/23. She states that she was working outside in her garden for most of the day in the heat and when she came inside she was feeling confused and having difficulty finding the right words to say. Currently she is denying having any slurring of her words yesterday. She denies having any weakness or numbness anywhere in her body. She states that she hasn't had anything like this happen before. She denies any shortness of breath or chest pain during her symptoms. She denies any loss of bowel or bladder function. She states that she feels as if she just overdid it over the last two days with working outside. Her symptoms had resolved before she had arrived to the emergency room and she has not had any return of her symptoms. Currently she is feeling back to her baseline. She is alert and oriented and comfortable at this time. Past Med Surg Social Fam HX - Past Medical History Medical history: asthma, coronary artery disease, fibromyalgia, hypertension, kidney stones, renal disease, thyroid disease Psychiatric history: no psych history - Past Surgical History Surgical History: coronary bypass (CABG), hip replacement, hysterectomy - Social History Smoking Status: Former smoker Smokeless Tobacco Status: No Alcohol use: none Drug use: none - Family History Father Living Status: Age at : 86 Hx Family Endocrine Disorder: Yes (DM) Mother Hx Family Cancer: Yes (SPINAL) Medications and Allergies Levothyroxine [Synthroid] 112 mcg PO QAM 01/23/17 [History] Metoprolol [Lopressor] 25 mg PO BID 01/23/17 [History] Allergies Penicillins Allergy (Verified 01/23/17 20:42) Hives acetaminophen [From Darvocet-N] Adverse Reaction (Verified 01/23/17 20:42) Nausea codeine Adverse Reaction (Verified 01/23/17 20:42) Nausea propoxyphene [From Darvocet-N] Adverse Reaction (Verified 01/23/17 20:42) Nausea All Systems: A 10-system review of systems was performed and is negative for pertinent findings except as documented above in the HPI. Review of Systems: Reviewed and as per HPI, otherwise negative. Physical Examination - Vital Signs Vital Signs: Initial Vital Signs Temp Pulse Resp BP Pulse Ox 98.6 F 36 16 191/96 94 01/23/17 21:06 01/23/17 21:06 01/23/17 21:06 01/23/17 21:06 01/23/17 21:06 - Constitutional General appearance: comfortable - Neurologic Sensorimotor examination: intact Detailed motor examination: full strength in all major muscle groups Motor examination - right side: 5/5: deltoids, biceps, triceps, wrist flexion, wrist extension, sas architect, hip flexors, tibialis Anterior, quadriceps, toe extension (EHL), plantarflexion Motor examination - left side: 5/5: deltoids, biceps, triceps, wrist flexion, wrist extension, hip flexors, sas architect, quadriceps, tibialis Anterior, toe extension (EHL), plantarflexion Detailed sensory examination: intact Reflex and gait examination: intact Reflexes: Biceps: 2+, Triceps: 2+, Brachioradialis: 2+, Patella: 2+, Achilles: 0 Mental Status Examination: awake, alert, oriented to person, oriented to place, oriented to time, follows commands appropriately, answers questions appropriately, no agnosia, no aphasia, lucid, makes eye contact Mental Status Examination: Loss of hearing on the right. Diminished hearing on the left, but able to understand me when speaking in the room and follow commands appropriately. Cranial nerve examination: PERRL, EOMI, visual ventura intact, corneal reflexes brisk symmetrically, sensory to face intact, mastication intact, no facial asymmetry is present, no dysarthria, soft palate elevates bilaterally upon phonation, flexes SCM and trapezius muscles symmetrically with full power, tongue protrudes midline, no atrophy or facial fasiculations present Cerebellar examination: no dysmetria, performs finger to nose and heel to gregory symmetrically without ataxia, no difficulty with rapid alternating movements Results - Laboratory Findings CBC and BMP: 01/24/17 06:19 01/24/17 06:19 Abnormal lab findings: Abnormal lab results Hgb 10.7 g/dL (11.5-15.4) L 01/24/17 06:19 Hct 32.8 % (35.3-44.9) L 01/24/17 06:19 MCV 82.4 fL (83.0-100.0) L 01/24/17 06:19 MCH 26.9 pg (28.0-33.3) L 01/24/17 06:19 RDW 14.7 % (11.5-14.5) H 01/24/17 06:19 Potassium 3.1 mEq/L (3.5-4.5) L 01/24/17 06:19 Chloride 110 mEq/L (98-109) H 01/24/17 06:19 Est GFR (Non-Af Amer) 51 (> 60) L 01/24/17 06:19 POC Glucose 103 (58-89) H 01/23/17 19:39 Total Bilirubin < 0.1 mg/dL (0.2-1.2) L 01/23/17 19:50 Indirect Bilirubin -0.1 mg/dL (0.0-1.2) L 01/23/17 19:50 HDL Cholesterol 30 mg/dL (40-59) L 01/24/17 06:19 Urine Clarity Cloudy (Clear) A 01/23/17 19:57 Urine Protein 30 mg/dL (Neg-Trace) H 01/23/17 19:57 Ur Squamous Epith Cells Moderate per lpf (None-Few) H 01/23/17 19:57 Consult Discharge Plan - Plan
--- NOTE | 2017-01-24 13:41 | EEG/EMG/Oth Biometrics Report ---
EEG Procedure Report Date of procedure: 01/24/17 EEG Procedure: Routine EEG Procedure Note: This EEG was acquired with standard international 1020 system with EKG recording. The background EEG activity was characterized by the presence of posterior dominant alpha rhythm with the best frequency up to 9.5Hz.. The background activity was reactive to eye openings. Sleep stages were characterized by the presence of background fragmentation, vertex waves, K complexes, and sleep spindles. There are no electrographic seizures identified during this tracing. There are no epileptiform discharges and focal slowing noted during this recording. Photic stimulation produced no abnormalities. Hyperventilation procedure was not performed EKG tracing showed no significant cardiac dysrhythmia. Impression: This is essentially a normal awake and asleep EEG. Clinical Correlation: Normal EEGs, however, do not exclude epilepsy. Clinical correlation advised.
[2017-01-24 15:33] VITALS: BP 154/64
--- NOTE | 2017-01-24 17:00 | Discharge Summary ---
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 Patient was asymptomatic throughout this admission with no focal neurological weaknesses or speech difficulties. Seen by neurology who recommended medical management with a daily baby aspirin. Heart ultrasound unremarkable. Echocardiogram unremarkable with ejection fraction 65% and moderate diastolic dysfunction. Patient euvolemic on examination to this admission and denied shortness of breath. EEG unremarkable. Patient counseled on avoiding dehydration and controlling her blood pressure home and checking her blood pressure daily. ITS Impressions Brain MRI 01/24/17 08:02 IMPRESSION: There is a rounded area of intermediate diffusion involving the genu of the corpus callosum on the right which is suspicious for a subacute area of infarct. Demyelination is felt to be less likely. There are remote lacunar infarcts in the basal ganglia bilaterally and in the left thalamus. There are numerous and confluent chronic small vessel ischemic changes and cerebral atrophy. D/ / 01/24/2017 11:56:20 Esmer Kincaid MD / noah Interpreting Provider: Esmer Kincaid MD (2) TIA (transient ischemic attack) Priority: Primary Status: Acute Qualifiers: Transient cerebral ischemia type: unspecified Qualified Code(s): G45.9 - Transient cerebral ischemic attack, unspecified (3) Hypertension Priority: Secondary Status: Chronic Comments: Hypertensive upon arrival, normotensive at time of discharge with the resumption of her regular home medications. Recommended the blood pressure checks at home, keeping a log, and following up outpatient. Qualifiers: Hypertension type: essential hypertension Qualified Code(s): I10 - Essential (primary) hypertension (4) DVT prophylaxis Priority: Primary Status: Acute Comments: Observation patient, brief admission, up ad yehuda. (5) CKD (chronic kidney disease) Priority: Secondary Status: Chronic Comments: Suspect she has chronic kidney disease stage III as the patient states she has been told in the past that she has mild renal dysfunction. I do not have prior lab values to formally establish chronicity. Creatinine returned to normal on day of discharge, follow-up outpatient Qualifiers: Chronic kidney disease stage: stage 3 (moderate) Qualified Code(s): N18.3 - Chronic kidney disease, stage 3 (moderate) - Discharge Medications Prescriptions: Aspirin 81 mg PO DAILY #30 tab.chew Home Medications: Levothyroxine [Synthroid] 112 mcg PO QAM 01/23/17 [History] Metoprolol [Lopressor] 25 mg PO BID 01/23/17 [History] Aspirin 81 mg PO DAILY #30 tab.chew 01/24/17 [Rx] Allergies/Adverse Reactions: Allergies Penicillins Allergy (Verified 01/23/17 20:42) Hives acetaminophen [From Darvocet-N] Adverse Reaction (Verified 01/23/17 20:42) Nausea codeine Adverse Reaction (Verified 01/23/17 20:42) Nausea propoxyphene [From Darvocet-N] Adverse Reaction (Verified 01/23/17 20:42) Nausea Procedures/tests Complete & Pending: Procedures Performed prior 72 hours Category Date Time Status MR head/brain wo con [MR] Routine MRI 01/24/17 08:02 Draft EV carotid duplex imaging BI Routine Y 01/24/17 22:33 Completed EV echocardiogram Routine Y 01/24/17 22:31 Completed Date of admission: 01/23/17 21:39 Primary care physician: Destiney Parisi, Consults: 01/23/17 22:33 Consult to Neurology [CONS] Routine Consulting Provider: [facility]rology [facility] Reason for Consult: TIA Call Completed: No 01/24/17 12:35 Consult to Interpret Exam [CONS] Routine Consulting Provider: Rody Sierra Consult to Interpret Exam: Interpret EEG Discharging clinician: Danelle Barrios Anticipated date of discharge: 01/24/17 - Patient Status Disposition: Home, Self-Care Condition: Fair Functional capacity at discharge: independent ambulation Overall status at discharge: patient is back to baseline - Discharge Instructions Instructions: Transient Ischemic Attack (DC), Chronic Kidney Disease (DC), Chronic Hypertension (DC) Follow Up With: Destiney Parisi MD [Primary Care Provider] - Forms: ED Satisfaction Letter Additional Instructions: Follow-up with primary care provider within one to 2 weeks, check blood pressure daily and keep a log - Diet and Activity Activity: increase activity as tolerated Diet: low fat, low cholesterol, low salt diet Hospital course: Ms. Diaz is a 86 year old female with past medical history of CAD status post CABG 3 in 2007, chronic kidney disease, fibromyalgia, hypertension, hypothyroidism, bilateral hip replacement. Patient presented to the emergency department chief complaint of confusion and slurred speech. She reports during the day she was working outside in her garden digging holes and planting tomato plants. Temperature that day was approximately 80 degrees. She came inside and a friend came over and patient reports that she felt confused and felt as if she could not understand anything her friend was saying to her and she was also not able to articulate her words. Symptoms resolved spontaneously prior to her presentation to the emergency department. She denied headache, lightheadedness, chest pain, palpitations, shortness of breath. Workup in the emergency department unremarkable other than initial accelerated hypertension and suspected mild acute kidney injury superimposed on what we believe is chronic kidney disease stage III (no prior lab values to determine chronicity). Chest x-ray negative. Head CT revealing chronic small vessel ischemic disease. The patient was admitted to the hospitalist service for further evaluation and management. Troponin negative. ECG revealing normal sinus rhythm. Patient was alert and oriented 3 and asymptomatic throughout this admission with no focal neurological weaknesses and fluid speech present throughout this admission. She was able to ambulate freely about her room without restriction. 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 Echocardiogram unremarkable with ejection fraction of 65%. Echocardiogram did reveal moderate diastolic dysfunction however patient denies shortness of breath and was euvolemic on examination throughout this admission. EEG was unremarkable. Neurology was brought on board are recommended addition of daily baby aspirin to her regimen. Patient stating after her triple bypass in 2007 that she had been on a baby aspirin for quite some time but took herself off the medication stating she felt as if taking the medication long-term would be harmful to her. She is amenable to restarting this medication. She remained asymptomatic. There was no indication for an OT or PT evaluation. She was educated on maintaining hydration and checking her blood pressure daily. She was normotensive at time of discharge with her regular home medication. Creatinine normal at time of discharge. She was discharged home in stable condition with close outpatient follow-up recommended. Of note, patient stating she lives alone but remains quite active and appears younger than stated age. She also states that she has 3 daughters that live close by and are constantly checking in on her. ITS Impressions Chest X-Ray 01/23/17 19:42 IMPRESSION: No significant pulmonary findings. D/ / Chris Gonzalez MD / Chris Gonzalez MD Interpreting Provider: Chris Gonzalez MD Head CT 01/23/17 19:42 IMPRESSION: Atrophy and moderate small vessel ischemic disease. Paranasal sinus disease. D/ / Silas Gonzalez MD / Silas Gonzalez MD Interpreting Provider: Silas Gonzalez MD Brain MRI 01/24/17 08:02 IMPRESSION: There is a rounded area of intermediate diffusion involving the genu of the corpus callosum on the right which is suspicious for a subacute area of infarct. Demyelination is felt to be less likely. There are remote lacunar infarcts in the basal ganglia bilaterally and in the left thalamus. There are numerous and confluent chronic small vessel ischemic changes and cerebral atrophy. D/ / 01/24/2017 11:56:20 Esmer Kincaid MD / noah Interpreting Provider: Esmer Kincaid MD Echo with saline contrast impressions: Normal LV systolic function, LVEF 65%. Mild concentric left ventricular hypertrophy. Moderate left ventricular diastolic dysfunction. Normal right ventricular size and function. Mildly dilated left atrium. Mild mitral regurgitation. Mitral tricuspid regurgitation. Mild pulmonary hypertension. Estimated RVSP was 36 mmHg. No evidence of intracardiac shunting with agitated saline contrast. EEG impression: This is essentially a normal awake and asleep EEG. Clinical correlation advised. - Time Spent with Patient Total time spent providing and/or coordinating discharge services: - Constitutional Vitals: Temp Pulse Resp BP Pulse Ox 98.1 F 60 16 154/64 96 01/24/17 15:32 01/24/17 15:32 01/24/17 15:32 01/24/17 15:32 01/24/17 15:32 General appearance: Present: A&O X 3, pleasant, no acute distress, answers questions appropriately - Head Head exam: Present: atraumatic, normocephalic - Eye Eye exam: Present: PERRL, conjuntiva pink, sclera anicteric Pupils: Present: PERRL - Neck Neck exam general surgery: Present: supple, trachea midline. Absent: lymphadenopathy - Respiratory Respiratory exam: Present: CTAB. Absent: accessory muscle use, rales, respiratory distress, rhonchi, wheezes - Cardiovascular Cardiovascular exam: Present: RRR, +S1, +S2. Absent: diastolic murmur, gallop, rubs, systolic murmur - GI/Abdominal GI/Abdominal exam: Present: normal bowel sounds, soft, no peritoneal signs. Absent: distended, tenderness - Extremities Exam Extremities exam: Present: warm, radial pulses palpable and symetrical. Absent : calf tenderness, cyanotic, pedal edema - Neurological Exam Neurological exam: Present: alert, CN II-XII intact, normal gait, oriented X3, no focal deficits, strengths equal and symetr throughout. Absent: pronater drift, facial droop, speech deficit - Expanded Neurological Exam Neurological exam expanded: Present: protecting the airway Patient oriented to: Present: person, place, time Speech: Present: fluid speech Cranial Nerves: EOM's intact PM: Normal Neuro motor strength exam: LUE: 5, RUE: 5, LLE: 5, RLE: 5 Coma Scale Eye Opening: Spontaneous Coma Scale Motor Response: Obeys Commands Coma Scale Verbal Response: Oriented Coma Scale Total: 15 - Skin Skin exam: Present: dry, intact, normal color, warm - Stroke Contraindication Rehab Services Not Assessed: Returned to Prior Level of Function
--- NOTE | 2017-01-24 20:39 | Electrocardiograph Report ---
[place] [id number] Test Date: 2017-01-23 Pat Name: Rhoda Diaz Department: 102 Room: [facility] Gender: F [employer]ide Furnace Tender: Cherry : 1930 Requested By: Jak Grossman Order Number: [id number] Reading MD: Pierre Bee MD Measurements Intervals [place] Rate: 72 P: 39 AL: 184 QRS: 8 QRSD: 103 T: 29 QT: 368 QTc: 392 Interpretive Statements SINUS RHYTHM Electronically Signed On 01-24-2017 20:37:37 EDT by Pierre Bee MD
--- NOTE | 2017-01-25 13:52 | Carotid Imaging Report ---
Carotid Duplex Patient Name:Rhoda Diaz Order Number:[id number] Procedure Date:01/24/2017 Date:1930ge:86 yrs Gender:Female Location:[facility] Room #: [employer] Computation Clerk:Reginald Peña, VERONIQUE Referring MD:Zayra Calle, FUTURES TRADER store leader:Destiney Parisi MD Reading MD:Villa Tony MD Primary Indications:TIA Risk Factors Yes/No Hypertension Yes Impressions: The bilateral carotid arteries have minimal plaque throughout. Recommendations: After imaging the patient returned to their room. Findings Carotid Duplex: Right: The right proximal common carotid artery has a PSV of 51 cm/s and a EDV of 8 cm/s. There is nonstenotic plaque in the right mid common carotid artery with a PSV of 57 cm/s and a EDV of 14 cm/s. There is smooth, heterogeneous calcified plaque. There is nonstenotic plaque in the right distal common carotid artery with a PSV of 49 cm/s and a EDV of 13 cm/s. There is smooth, heterogeneous calcified plaque. There is nonstenotic plaque in the right bifurcation with a PSV of 50 cm/s and a EDV of 14 cm/s. There is smooth heterogeneous plaque. There is nonstenotic plaque in the right proximal internal carotid artery with a PSV of 53 cm/s and a EDV of 15 cm/s. There is smooth calcified plaque. The right mid internal carotid artery has a PSV of 52 cm/s and a EDV of 12 cm/s. The right distal internal carotid artery has a PSV of 91 cm/s and a EDV of 26 cm/s. The right eca has turbulent flow with plaque with a PSV of 430 cm/s and a EDV of 35 cm/s. The right vertebral artery has a PSV of 31 cm/s and a EDV of 10 cm/s. Left: The left proximal common carotid artery has a PSV of 66 cm/s and a EDV of 11 cm/s. There is nonstenotic plaque in the left mid common carotid artery with a PSV of 75 cm/s and a EDV of 22 cm/s. There is smooth heterogeneous plaque. There is nonstenotic plaque in the left distal common carotid artery with a PSV of 72 cm/s and a EDV of 13 cm/s. There is smooth, heterogeneous calcified plaque. There is nonstenotic plaque in the left bifurcation with a PSV of 62 cm/s and a EDV of 12 cm/s. There is smooth calcified plaque. The left proximal internal carotid artery has a PSV of 63 cm/s and a EDV of 17 cm/s. The left mid internal carotid artery has a PSV of 112 cm/s and a EDV of 24 cm/s. The left distal internal carotid artery has a PSV of 114 cm/s and a EDV of 30 cm/s. The left eca has turbulent flow with plaque with a PSV of 246 cm/s and a EDV of 16 cm/s. The left vertebral artery has a PSV of 37 cm/s and a EDV of 9 cm/s. Prior Study: No prior study available for comparison. Carotid Results Right PSV EDV Assessment Proximal CCA 51 8 Normal Mid CCA 57 14 Non Stenotic Plaque Distal CCA 49 13 Non Stenotic Plaque Bifurcation 50 14 Non Stenotic Plaque Proximal ICA 53 15 Non Stenotic Plaque Mid ICA 52 12 Normal Distal ICA 91 26 Normal ECA 430 35 Atypical flow Vertebral Artery 31 10 Normal Left PSV EDV Assessment Proximal CCA 66 11 Normal Mid CCA 75 22 Non Stenotic Plaque Distal CCA 72 13 Non Stenotic Plaque Bifurcation 62 12 Non Stenotic Plaque Proximal ICA 63 17 Normal Mid ICA 112 24 Normal Distal ICA 114 30 Normal ECA 246 16 Non Stenotic Plaque Vertebral Artery 37 9 Normal Ratio's Right ICA/CCA Ratio: 0.93 ICA/CCA Values: 53/57 Left ICA/CCA Ratio: 1.52 ICA/CCA Values: 114/75 Updated by Villa Tony MD on 01/25/2017 1:47:41 PM electronically signed on 01/25/2017 1:48:03 PM with status of Final
== END 2017-01-24 18:40 | disposition home or self-care (01) ==
LOC: EMEROO 19:30 → 3BNU 19:30
PROVIDERS: ADMIT Nurse Practitioner Family; ATTEND Nurse Practitioner Family

== ENCOUNTER 2017-05-04 10:32 | Observation (INO) ==
--- NOTE | 2017-05-04 10:58 | Emergency Department Note ---
Disposition Clinical Impression: Melena, Hematochezia Disposition: Admitted As Inpatient Condition: Good General Adult HPI - General Chief complaint: ED GI Bleed Stated complaint: rectal bleeding Time Seen by Provider: 05/04/17 10:55 Source: patient Limitations: no limitations - History of Present Illness Pain Scale: 0 - Related Data Home Medications Medication Instructions Recorded Confirmed Levothyroxine [Synthroid] 112 mcg PO QAM 01/23/17 05/04/17 Metoprolol Tartrate [Lopressor] 50 mg PO DAILY 05/04/17 05/04/17 Previous Rx's Medication Instructions Recorded Aspirin 81 mg PO DAILY #30 tab.chew 01/24/17 Commode - Three In One [THREE IN 1 each .ROUTE PRN PRN #1 each 05/05/17 ONE COMMODE] Allergies Allergy/AdvReac Type Severity Reaction Status Date / Time Penicillins Allergy Hives Verified 01/23/17 20:42 acetaminophen AdvReac Nausea Verified 01/23/17 20:42 [From Darvocet-N] codeine AdvReac Nausea Verified 01/23/17 20:42 propoxyphene AdvReac Nausea Verified 01/23/17 20:42 [From Darvocet-N] Past Medical History - Past Medical History Medical history: Reports: asthma, coronary artery disease, fibromyalgia, hypertension, kidney stones, renal disease, thyroid disease Surgical history: Reports: coronary bypass (CABG), hip replacement, hysterectomy Psychiatric history: Reports: no psych history - Social History Smoking Status: Former smoker Smokeless Tobacco Status: No Alcohol use: Reports: none Drug use: Reports: none Physical Exam - General Limitations: no limitations General appearance: alert, in no apparent distress Course Vital Signs Temperature 98.1 F 05/04/17 10:42 Pulse Rate 89 05/04/17 10:42 Respiratory Rate 18 05/04/17 10:42 Blood Pressure 135/63 05/04/17 10:42 O2 Sat by Pulse Oximetry 98 05/04/17 10:42 Temperature 98.8 F 05/05/17 06:35 Pulse Rate 95 05/05/17 06:35 Respiratory Rate 15 05/05/17 06:35 Blood Pressure 145/75 05/05/17 06:35 O2 Sat by Pulse Oximetry 95 05/05/17 06:35 Oxygen Delivery Oxygen Delivery Room Air Medical Decision Making - Lab Data Result diagrams: 05/05/17 03:12 05/05/17 03:12 Lab Results 05/04/17 05/04/17 05/04/17 Range/Units 11:29 11:29 11:29 WBC 6.8 (4.3-11.1) K/mcL RBC 4.07 (3.82-4.97) M/mcL Hgb 10.9 L (11.5-15.4) g/dL Hct 34.2 L (35.3-44.9) % MCV 84.0 (83.0-100.0) fL MCH 26.8 L (28.0-33.3) pg MCHC 31.9 (31.6-35.5) g/dL RDW 13.8 (11.5-14.5) % Plt Count 185 (140-400) K/mcL MPV 9.7 (9.4-12.4) fL Immature Gran % 0.3 (0-4) % Seg Neutrophils % 87.6 % Lymphocytes % 8.4 % Monocytes % 3.1 % Eosinophils % 0.3 % Basophils % 0.3 % Neutrophils # 5.9 (1.6-8.9) K/mcL Lymphocytes # 0.6 (0.6-4.6) K/mcL Monocytes # 0.2 (0.0-1.3) K/mcL Eosinophils # 0.0 (0.0-0.6) K/mcL Basophils # 0.0 (0.0-0.2) K/mcL PT (9.4-12.1) Seconds INR APTT (26.0-36.0) Seconds Sodium 138 (136-145) mEq/L Potassium 4.1 (3.5-4.5) mEq/L Chloride 105 (98-109) mEq/L Carbon Dioxide 27 (19-29) mEq/L BUN 17 (7-20) mg/dL Creatinine 1.16 H (0.57-1.11) mg/dL Est GFR ( Amer) 53 L (> 60) Est GFR (Non-Af Amer) 44 L (> 60) BUN/Creatinine Ratio 15 (6-26) Glucose 143 H (70-99) mg/dL Calculated Osmolality 290 (280-300) Calcium 9.5 (8.6-10.8) mg/dL Total Bilirubin 0.4 (0.2-1.2) mg/dL AST 17 (5-34) Units/L ALT 12 (0-55) Units/L Alkaline Phosphatase 79 (38-126) Units/L Serum Total Protein 6.2 (6.0-8.3) g/dL Albumin 3.5 (3.5-5.0) g/dL Globulin 2.7 (2.4-3.5) g/dL Albumin/Globulin Ratio 1.3 (1.1-2.2) Stool Occult Blood (Negative) Blood Type O POSITIVE Antibody Screen NEGATIVE 05/04/17 05/04/17 Range/Units 11:29 12:03 WBC (4.3-11.1) K/mcL RBC (3.82-4.97) M/mcL Hgb (11.5-15.4) g/dL Hct (35.3-44.9) % MCV (83.0-100.0) fL MCH (28.0-33.3) pg MCHC (31.6-35.5) g/dL RDW (11.5-14.5) % Plt Count (140-400) K/mcL MPV (9.4-12.4) fL Immature Gran % (0-4) % Seg Neutrophils % % Lymphocytes % % Monocytes % % Eosinophils % % Basophils % % Neutrophils # (1.6-8.9) K/mcL Lymphocytes # (0.6-4.6) K/mcL Monocytes # (0.0-1.3) K/mcL Eosinophils # (0.0-0.6) K/mcL Basophils # (0.0-0.2) K/mcL PT 9.9 (9.4-12.1) Seconds INR 0.9 APTT 27.2 (26.0-36.0) Seconds Sodium (136-145) mEq/L Potassium (3.5-4.5) mEq/L Chloride (98-109) mEq/L Carbon Dioxide (19-29) mEq/L BUN (7-20) mg/dL Creatinine (0.57-1.11) mg/dL Est GFR ( Amer) (> 60) Est GFR (Non-Af Amer) (> 60) BUN/Creatinine Ratio (6-26) Glucose (70-99) mg/dL Calculated Osmolality (280-300) Calcium (8.6-10.8) mg/dL Total Bilirubin (0.2-1.2) mg/dL AST (5-34) Units/L ALT (0-55) Units/L Alkaline Phosphatase (38-126) Units/L Serum Total Protein (6.0-8.3) g/dL Albumin (3.5-5.0) g/dL Globulin (2.4-3.5) g/dL Albumin/Globulin Ratio (1.1-2.2) Stool Occult Blood Positive A (Negative) Blood Type Antibody Screen Attestation Statement - Attestation Attestation: I examined this patient and my medical decision-making was reviewed with the Resident Physician. I agree with the documented findings, disposition and treatment plan as described except to the extent set forth below. [id number] time provided Patient "woke up covered in blood." She did not have a bowel movement that was bloody. She denies abdominal pain. She takes no blood thinners. She appears in no acute distress on exam. Family at bedside
[2017-05-04 11:40] LABS: Basophils % 0.3 %; Eosinophils % 0.3 %; Hematocrit 34.2 % (35.3-44.9); Hemoglobin 10.9 g/dL (11.5-15.4); Immature Granulocytes % 0.3 % (0-4); Lymphocytes # 0.6 K/mcL (0.6-4.6); Lymphocytes % 8.4 %; Mean Corpuscular HGB Conc 31.9 g/dL (31.6-35.5); Mean Corpuscular Hemoglobin 26.8 pg (28.0-33.3); Mean Platelet Volume 9.7 fL (9.4-12.4); Monocytes # 0.2 K/mcL (0.0-1.3); Monocytes % 3.1 %; Neutrophils # 5.9 K/mcL (1.6-8.9); Platelet Count 185 K/mcL (140-400); Red Blood Count 4.07 M/mcL (3.82-4.97); Red Cell Distribution Width 13.8 % (11.5-14.5); Segmented Neutrophils % 87.6 %
[2017-05-04 11:50] LABS: INR 0.9; Prothrombin Time 9.9 Seconds (9.4-12.1)
[2017-05-04 11:52] LABS: Activated Partial Thrombo Time 27.2 Seconds (26.0-36.0)
[2017-05-04 11:54] LABS: Albumin 3.5 g/dL (3.5-5.0); Albumin/Globulin Ratio 1.3 (1.1-2.2); Bilirubin,Total 0.4 mg/dL (0.2-1.2); Calcium 9.5 mg/dL (8.6-10.8); Globulin 2.7 g/dL (2.4-3.5); Potassium 4.1 mEq/L (3.5-4.5); Total Protein 6.2 g/dL (6.0-8.3)
--- NOTE | 2017-05-04 11:57 | Emergency Department Note ---
Disposition Clinical Impression: Melena, Hematochezia Disposition: Admitted As Inpatient Condition: Good Time of Disposition: 15:43 General Adult HPI - General Chief complaint: ED GI Bleed Stated complaint: rectal bleeding Time Seen by Provider: 05/04/17 10:55 Source: patient Limitations: no limitations Nursing Notes Reviewed: Yes Vital Signs Reviewed: Yes - History of Present Illness HPI Narrative: Patient had 2 episodes of bleeding from her rectum earlier today. States initially was dark in color and then turned light red. Denies any shortness of breath or chest pain. Denies any abdominal pain. Does state that she had some generalized weakness associated with this. Pain Scale: 0 - Related Data Home Medications Medication Instructions Recorded Confirmed Levothyroxine [Synthroid] 112 mcg PO QAM 01/23/17 01/23/17 Metoprolol Tartrate [Lopressor] 50 mg PO DAILY 05/04/17 05/04/17 Previous Rx's Medication Instructions Recorded Aspirin 81 mg PO DAILY #30 tab.chew 01/24/17 Allergies Allergy/AdvReac Type Severity Reaction Status Date / Time Penicillins Allergy Hives Verified 01/23/17 20:42 acetaminophen AdvReac Nausea Verified 01/23/17 20:42 [From Darvocet-N] codeine AdvReac Nausea Verified 01/23/17 20:42 propoxyphene AdvReac Nausea Verified 01/23/17 20:42 [From Darvocet-N] All systems ED: reviewed and negative except as stated. Constitutional: Denies: fever, chills Cardiovascular: Denies: chest pain, palpitations, syncope Respiratory: Denies: cough, dyspnea, wheezes Gastrointestinal: Reports: melena, hematochezia. Denies: abdominal pain, nausea , vomiting, diarrhea Genitourinary: Denies: urgency, dysuria, frequency Musculoskeletal: Denies: back pain, neck pain Integumentary: Denies: rash Neurological: Reports: weakness. Denies: headache Past Medical History - Past Medical History Attestation: Yes The following information was validated with the patient. Source: patient Medical history: Reports: asthma, coronary artery disease, fibromyalgia, hypertension, kidney stones, renal disease, thyroid disease Surgical history: Reports: coronary bypass (CABG), hip replacement, hysterectomy Psychiatric history: Reports: no psych history - Social History Smoking Status: Former smoker Smokeless Tobacco Status: No Alcohol use: Reports: none Drug use: Reports: none Physical Exam - General Limitations: no limitations General appearance: alert, in no apparent distress - Head Head exam: atraumatic, normocephalic, normal inspection - Eye Eye exam: Present: normal appearance, PERRL, EOMI. Absent: scleral icterus - ENT ENT exam: normal exam, normal oropharynx, mucous membranes moist - Neck Neck exam: Present: normal inspection, full ROM, trachea midline. Absent: tenderness, lymphadenopathy - Chest Chest inspection: Present: normal inspection, symmetric chest wall rise - Respiratory Respiratory exam: Present: normal lung sounds bilaterally. Absent: respiratory distress, accessory muscle use - Cardiovascular Cardiovascular exam: Present: regular rate, normal rhythm, normal heart sounds - Abdominal Exam Abdominal exam: Present: soft, Non-Tender, normal bowel sounds. Absent: tenderness, distention, guarding, rebound, rigidity, organomegaly, Mccormick's sign , Rovsing's sign, tenderness at McBurney's Point - Rectal Exam Salesperson Hearing Aids present during exam: Yes Rectal exam: Present: heme (+) stool - Extremities Exam Extremities exam: Present: normal inspection, full ROM, normal capillary refill. Absent: tenderness, pedal edema - Back Exam Back exam: Present: normal inspection, full ROM. Absent: tenderness, CVA tenderness (R), CVA tenderness (L) - Neurological Exam Neurological exam: Present: alert, oriented X3 - Psychiatric Psychiatric exam: Present: normal affect, normal mood - Skin Skin exam: Present: warm, dry, intact, normal color. Absent: rash, cyanosis, diaphoresis, erythema Course Course Narrative: Female patient presents emergency department complaining of 2 episodes of blood per rectum this morning. States it started out as a dark stool but the second stool ended up turning into a bright red. There had this happen to her before. States she has had ulcers before but no hematemesis. This was several years ago. She states yesterday she had some indigestion but denies any shortness of breath or chest pain. This morning she was slightly weak. She denies any episodes of syncope. On exam her lung sounds are clear heart sounds are normal. Her abdomen is soft and nontender. She has gross blood on rectal exam. Normal rectal tone. He has no signs of edema to her extremities. She is pleasant on exam. Does not appear to be in any distress. Will give patient a dose of Protonix and basic lab workup patient. - Reevaluation(s) Reevaluation #1: Patient's Hemoccult was positive. Her hemoglobin is slightly low. We will admit patient to the hospital for serial hemoglobins and to further evaluate her GI bleeding. I feel she is unsafe to go home at this time due to her generalized weakness. She is agreeable to be admitted. - Consultations Consultation #1: Dr Jennings accepted Pt in stable condition Time: 12:52 Vital Signs Temperature 98.1 F 05/04/17 10:42 Pulse Rate 89 05/04/17 10:42 Respiratory Rate 18 05/04/17 10:42 Blood Pressure 135/63 05/04/17 10:42 O2 Sat by Pulse Oximetry 98 05/04/17 10:42 Temperature 97.6 F 05/04/17 11:03 Pulse Rate 89 05/04/17 12:33 Respiratory Rate 16 05/04/17 12:33 Blood Pressure 111/94 05/04/17 12:33 O2 Sat by Pulse Oximetry 95 05/04/17 11:03 Oxygen Delivery Oxygen Delivery Room Air Medical Decision Making - Medical Records Medical records reviewed: Yes I reviewed the patient's medical records. - Lab Data Lab results reviewed: Yes I reviewed the patient's lab results. Result diagrams: 05/04/17 11:29 05/04/17 11:29 Lab Results 05/04/17 05/04/17 05/04/17 Range/Units 11:29 11:29 11:29 WBC 6.8 (4.3-11.1) K/mcL RBC 4.07 (3.82-4.97) M/mcL Hgb 10.9 L (11.5-15.4) g/dL Hct 34.2 L (35.3-44.9) % MCV 84.0 (83.0-100.0) fL MCH 26.8 L (28.0-33.3) pg MCHC 31.9 (31.6-35.5) g/dL RDW 13.8 (11.5-14.5) % Plt Count 185 (140-400) K/mcL MPV 9.7 (9.4-12.4) fL Immature Gran % 0.3 (0-4) % Seg Neutrophils % 87.6 % Lymphocytes % 8.4 % Monocytes % 3.1 % Eosinophils % 0.3 % Basophils % 0.3 % Neutrophils # 5.9 (1.6-8.9) K/mcL Lymphocytes # 0.6 (0.6-4.6) K/mcL Monocytes # 0.2 (0.0-1.3) K/mcL Eosinophils # 0.0 (0.0-0.6) K/mcL Basophils # 0.0 (0.0-0.2) K/mcL PT (9.4-12.1) Seconds INR APTT (26.0-36.0) Seconds Sodium 138 (136-145) mEq/L Potassium 4.1 (3.5-4.5) mEq/L Chloride 105 (98-109) mEq/L Carbon Dioxide 27 (19-29) mEq/L BUN 17 (7-20) mg/dL Creatinine 1.16 H (0.57-1.11) mg/dL Est GFR ( Amer) 53 L (> 60) Est GFR (Non-Af Amer) 44 L (> 60) BUN/Creatinine Ratio 15 (6-26) Glucose 143 H (70-99) mg/dL Calculated Osmolality 290 (280-300) Calcium 9.5 (8.6-10.8) mg/dL Total Bilirubin 0.4 (0.2-1.2) mg/dL AST 17 (5-34) Units/L ALT 12 (0-55) Units/L Alkaline Phosphatase 79 (38-126) Units/L Serum Total Protein 6.2 (6.0-8.3) g/dL Albumin 3.5 (3.5-5.0) g/dL Globulin 2.7 (2.4-3.5) g/dL Albumin/Globulin Ratio 1.3 (1.1-2.2) Stool Occult Blood (Negative) Blood Type O POSITIVE Antibody Screen NEGATIVE 05/04/17 05/04/17 Range/Units 11:29 12:03 WBC (4.3-11.1) K/mcL RBC (3.82-4.97) M/mcL Hgb (11.5-15.4) g/dL Hct (35.3-44.9) % MCV (83.0-100.0) fL MCH (28.0-33.3) pg MCHC (31.6-35.5) g/dL RDW (11.5-14.5) % Plt Count (140-400) K/mcL MPV (9.4-12.4) fL Immature Gran % (0-4) % Seg Neutrophils % % Lymphocytes % % Monocytes % % Eosinophils % % Basophils % % Neutrophils # (1.6-8.9) K/mcL Lymphocytes # (0.6-4.6) K/mcL Monocytes # (0.0-1.3) K/mcL Eosinophils # (0.0-0.6) K/mcL Basophils # (0.0-0.2) K/mcL PT 9.9 (9.4-12.1) Seconds INR 0.9 APTT 27.2 (26.0-36.0) Seconds Sodium (136-145) mEq/L Potassium (3.5-4.5) mEq/L Chloride (98-109) mEq/L Carbon Dioxide (19-29) mEq/L BUN (7-20) mg/dL Creatinine (0.57-1.11) mg/dL Est GFR ( Amer) (> 60) Est GFR (Non-Af Amer) (> 60) BUN/Creatinine Ratio (6-26) Glucose (70-99) mg/dL Calculated Osmolality (280-300) Calcium (8.6-10.8) mg/dL Total Bilirubin (0.2-1.2) mg/dL AST (5-34) Units/L ALT (0-55) Units/L Alkaline Phosphatase (38-126) Units/L Serum Total Protein (6.0-8.3) g/dL Albumin (3.5-5.0) g/dL Globulin (2.4-3.5) g/dL Albumin/Globulin Ratio (1.1-2.2) Stool Occult Blood Positive A (Negative) Blood Type Antibody Screen
[2017-05-04] MEDS ORDERED: Pantoprazole 40 MG VIAL IVP ONE (12:02)
[2017-05-04] MEDS ORDERED: Naloxone 0.4 MG/ML INJ IVP PRN (14:00)
--- NOTE | 2017-05-04 14:23 | Internal Med History&Physical ---
<Jack Paz J - Last Filed: 05/04/17 14:08> Date of Encounter: 05/04/17 Time of Encounter: 14:08 Assessment and Plan (1) GI bleeding Current visit: Yes Status: Acute 2 episodes of melanic stool this morning. Positive fecal occult blood and a slight drop in hemoglobin. Diagnosed as GI bleed. Continuous tele Continuous spo2 oxygen to titrate for spo2 to remain >92% H&H tonight at 10pm and CBC, CMP in am. Continue ASA as bleeding has stopped for now and the patient is not anemic in comparison to recent labs. GI consult called. To see this afternoon. Dr. Pepe to see in am for potential colonoscopy Diet NPO now 40mg IV protonix BID Continue to monitor for additional episodes of bleeding. Nursing staff aware. Qualifiers: Qualified Code(s): K92.2 - Gastrointestinal hemorrhage, unspecified (2) DVT prophylaxis Current visit: Yes Status: Acute risk for DVT d/t immobility. Start lovenox sc40mg daily. Internal Medicine - H&P: HPI Chief complaint: GI bleed Admitted From: Home Plans for Post Hospital Care: Home History of present illness: Ms. Diaz is a 86 year old female with a PMH of asthma, CAD, HTN, fibromyalgia, hypothyroidism, CABG, hip replacement, and hysterectomy who presents this morning with a CC of GI bleeding x 2 episodes. She reports a medium melanic stool with the first BM and some bright red blood with the second. She has not had any additional BM's today. Denies any SOB, N/V/D, fevers, abdominal pain, anorexia, or dyspepsia. Admits to only new acute bleeding x2 episodes. Her medication list is limited as she only take a BB, ASA , and synthroid. Lab work in the ED unremarkable; does not appear anemic when compared to prior labs. H&H at baseline. Being admitted for further w/u and evaluation. Past Med Surg Social Fam HX - Past Medical History Medical history: asthma, coronary artery disease, fibromyalgia, hypertension, kidney stones, renal disease, thyroid disease Psychiatric history: no psych history - Past Surgical History Surgical History: coronary bypass (CABG), hip replacement, hysterectomy - Social History Smoking Status: Former smoker Smokeless Tobacco Status: No Alcohol use: none Drug use: none - Family History Father Living Status: Hx Family Endocrine Disorder: Yes (DM) Mother Hx Family Cancer: Yes (SPINAL) Internal Medicine - H&P: Meds Levothyroxine [Synthroid] 112 mcg PO QAM 01/23/17 [History] Aspirin 81 mg PO DAILY #30 tab.chew 01/24/17 [Rx] Metoprolol Tartrate [Lopressor] 50 mg PO DAILY 05/04/17 [History] Commode - Three In One [THREE IN ONE COMMODE] 1 each .ROUTE PRN PRN #1 each [Rx] 3 Allergy/AdvReac Type Severity Reaction Status Date / Time Penicillins Allergy Hives Verified 01/23/17 20:42 acetaminophen AdvReac Nausea Verified 01/23/17 20:42 [From Darvocet-N] codeine AdvReac Nausea Verified 01/23/17 20:42 propoxyphene AdvReac Nausea Verified 01/23/17 20:42 [From Darvocet-N] All Systems PM: A 10-system review of systems was performed and is negative for pertinent findings except as documented above in the HPI. - Constitutional Constitutional: no chills, no fatigue, no fever(s), no night sweats, no weakness - EENT Eyes: no change in vision, no discharge, no pain, no photophobia Ears: no ear discharge, no ear pain, no tinnitus Nose, mouth and throat: no dysphagia, no nasal discharge, no neck pain, no sore throat - Cardiovascular Cardiovascular ROS IM: no chest pain, no diaphoresis, no dyspnea, no dyspnea on exertion, no edema, no lightheadedness, no palpitations, no syncope - Respiratory Respiratory: no cough, no dyspnea, no dyspnea on exertion, no wheezing, no excessive phlegm production - Gastrointestinal Gastrointestinal: melena, no abdominal pain, no belching, no bloating, no change in bowel habits, no change in stool character, no coffee ground emesis, no constipation, no cramping, no diarrhea, no dyspepsia, no dysphagia, no early satiety, no hematemesis, no hematochezia, no nausea, no vomiting - Genitourinary Genitourinary: no change in urinary stream, no dysuria, no flank pain, no hematuria - Musculoskeletal Musculoskeletal ROS IM: no numbness, no tingling - Integumentary Integumentary IM: no rash, no unusual bruising - Neurological Neurological ROS: no confusion, no convulsions, no focal weakness, no numbness, no tingling, no tremor(s) - Hematologic/Lymphatic Hematologic/Lymphatic: no easy bruising - Constitutional Vitals: Temp Pulse Resp BP Pulse Ox 97.6 F 89 16 111/94 95 05/04/17 11:03 05/04/17 12:33 05/04/17 12:33 05/04/17 12:33 05/04/17 11:03 General appearance: Present: cooperative, A&O X 3, no acute distress, answers questions appropriately - Head Head exam: Present: atraumatic, normocephalic - Eye Eye exam: Present: PERRL, conjuntiva pink, sclera anicteric Pupils: Present: PERRL - Neck Neck exam general surgery: Present: supple, trachea midline. Absent: lymphadenopathy - Respiratory Respiratory exam: Present: CTAB. Absent: accessory muscle use, rales, rhonchi, wheezes - Cardiovascular Cardiovascular exam: Present: RRR, +S1, +S2. Absent: diastolic murmur, gallop, rubs, systolic murmur - GI/Abdominal GI/Abdominal exam: Present: normal bowel sounds, soft, no peritoneal signs. Absent: distended, tenderness - Extremities Exam Extremities exam: Present: warm, radial pulses palpable and symmetrical. Absent : calf tenderness, cyanotic, pedal edema - Neurological Exam Neurological exam: Present: CN II-XII intact, oriented X3, no focal deficits. Absent: pronater drift, facial droop, speech deficit - Skin Skin exam: Present: dry, intact Internal Med - H&P Results - Labs CBC & Chem 7: 05/04/17 11:29 05/04/17 11:29 <Kandice Jennings - Last Filed: 05/05/17 08:00> Date of Encounter: 05/04/17 Time of Encounter: 15:05 Internal Medicine - H&P: HPI History of present illness: Ms. Diaz is a 86 year old female All Systems PM: A 10-system review of systems was performed and is negative for pertinent findings except as documented above in the HPI. - Constitutional Vitals: Temp Pulse Resp BP Pulse Ox 98.8 F 95 15 145/75 95 05/05/17 06:35 05/05/17 06:35 05/05/17 06:35 05/05/17 06:35 05/05/17 06:35 Internal Med - H&P Results - Labs CBC & Chem 7: 05/05/17 03:12 05/05/17 03:12 Labs: Short CBC 05/04/17 05/05/17 Range/Units 21:57 03:12 WBC 4.7 (4.3-11.1) K/mcL Hgb 9.3 L D 8.7 L (11.5-15.4) g/dL Hct 28.9 L 27.2 L (35.3-44.9) % Plt Count 176 (140-400) K/mcL Neutrophils # 3.3 (1.6-8.9) K/mcL BMP 05/05/17 03:12 Sodium 141 Potassium 3.8 Chloride 108 Carbon Dioxide 26 BUN 13 Creatinine 1.05 Glucose 97 Calcium 9.1 Liver Function 05/05/17 Range/Units 03:12 Total Bilirubin 0.5 (0.2-1.2) mg/dL AST 15 (5-34) Units/L ALT 12 (0-55) Units/L Alkaline Phosphatase 62 (38-126) Units/L Albumin 3.2 L (3.5-5.0) g/dL - Attending Attestation Pt independently seen and examined. Admitted for LGIB. Surgery consultation requested for colonoscopy. Clear liquid diet today and NPO after midnight. EPCD for DVT prophylaxis. Mild JERRY noted, likely secondary to LGIB. Will continue gentle IV fluid hydration. Case discussed with VICTORINA Paz, I agree with his documented findings, assessment,and plan except as listed above.
--- NOTE | 2017-05-04 15:06 | General Surgery Consult Note ---
<Doug Durbin - Last Filed: 05/04/17 16:38> Date of Encounter: 05/04/17 Time of Encounter: 15:00 Assessment and Plan (1) Hematochezia Current Visit: Yes Status: Acute 86 year old female with PMH of asthma, CAD, HTN, CKD, fibromyalgia, hypothyroidism, CABG (2007), hip replacement, hysterectomy, recent episode of TIA presented to ED this a.m. due to 2 episodes of bloody diarrhea. Clear diet today if patient can eat (No red clear liquids). NPO after midnight. Bowel prep for colonoscopy by Dr. Pepe tomorrow morning. Supportive and conservative management for now. Continue IV fluids. PPI for nausea and vomiting. (2) Hypertension Current Visit: No Status: Chronic OK to start blood pressure medication. Manage per primary team. Qualifiers: Hypertension type: essential hypertension Qualified Code(s): I10 - Essential (primary) hypertension (3) CKD (chronic kidney disease) Current Visit: No Status: Chronic BUN/Cr within normal limit. Continue to monitor with a.m. labs. manage per primary team. Qualifiers: Chronic kidney disease stage: unspecified stage Qualified Code(s): N18.9 - Chronic kidney disease, unspecified (4) Hypothyroidism Current Visit: Yes Status: Acute Ok to start synthroid. manage per primary team. Qualifiers: Qualified Code(s): E03.9 - Hypothyroidism, unspecified (5) Hx of CABG Current Visit: Yes Status: Acute OK to start aspirin 81mg (6) Hypokalemia Current Visit: Yes Status: Acute K+ = 3.1 monitor with a.m. labs manage per primary team. (7) History of TIA (transient ischemic attack) Current Visit: Yes Status: Acute History of Present Illness Consult date: 05/04/17 Reason for consult: other (bloody stool) History of present illness: 86 year old female with PMH of asthma, CAD, HTN, CKD, fibromyalgia, hypothyroidism, CABG (2007), hip replacement, hysterectomy, recent episode of TIA presented to ED this a.m. due to 2 episodes of bloody diarrhea. Patient reports first episode occurred at 7am with black liquid stool, at which time she put on pads. She had a second episode 45 minutes later and noticed bright red blood on her toilet paper. The patient states she experienced dizziness afterwards. She denies any accompanying chest pain, shortness of breath, abdominal pain, nausea, vomiting, fevers, chills. She denies having any similar episodes in the past. Her last colonoscopy was 15+ years ago and she reports that it was normal. The patient has not taken any medications for her bloody stools. She denies having another BM since her second episode. Denies any recent falls or illnesses. She does report history of PUD 50+ years ago. She is currently on metoprolol 50mg PO daily, levothyroxine, ASA 81mg. Family history includes "spine cancer" from her mom, who at age 52. Father had diabetes. Past Med Surg Social Fam HX - Past Medical History Medical history: asthma, coronary artery disease, fibromyalgia, hypertension, kidney stones, renal disease, thyroid disease Psychiatric history: no psych history - Past Surgical History Surgical History: coronary bypass (CABG), hip replacement, hysterectomy - Social History Smoking Status: Former smoker Smokeless Tobacco Status: No Alcohol use: none Drug use: none - Family History Father Living Status: Age at : 86 Cause of : diabetes complications Hx Family Cardiac Disorders: Yes Hx Family Endocrine Disorder: Yes (DM) Mother Living Status: Age at : 52 Hx Family Cardiac Disorders: Yes Hx Family Cancer: Yes (SPINAL) Hx Family GI Disorders: No Hx Family Genitourinary Disorders: No Hx Family Endocrine Disorder: Yes Hx Family Musculoskeletal Disorders: No Hx Family Neuromuscular Disorders: Yes Medications and Allergies Levothyroxine [Synthroid] 112 mcg PO QAM 01/23/17 [History] Aspirin 81 mg PO DAILY #30 tab.chew 01/24/17 [Rx] Metoprolol Tartrate [Lopressor] 50 mg PO DAILY 05/04/17 [History] Commode - Three In One [THREE IN ONE COMMODE] 1 each .ROUTE PRN PRN #1 each [Rx] 3 Allergy/AdvReac Type Severity Reaction Status Date / Time Penicillins Allergy Hives Verified 01/23/17 20:42 acetaminophen AdvReac Nausea Verified 01/23/17 20:42 [From Darvocet-N] codeine AdvReac Nausea Verified 01/23/17 20:42 propoxyphene AdvReac Nausea Verified 01/23/17 20:42 [From Darvocet-N] Review of Systems All systems PM: A 10-system review of systems was performed and is negative for pertinent findings except as documented above in the HPI. - Constitutional as per HPI, no anorexia, no chills, no fatigue, no frequent falls, no headache(s ), no weakness - EENT Nose, mouth and throat: abnormal hearing, no headache(s), no throat swelling - Cardiovascular no chest pain, no diaphoresis, no dyspnea, no edema, no palpitations - Respiratory wheezing (reports bilateral wheezing from asthma), no cough, no dyspnea, no hemoptysis - Gastrointestinal no abdominal pain, no constipation, no cramping, no heartburn, no nausea, no vomiting - Genitourinary Genitourinary: urinary incontinence, no dysuria - Musculoskeletal no numbness, no tingling - Neurological dizziness, no confusion, no weakness - Psychiatric no memory loss - Endocrine no palpitations - Hematologic/Lymphatic no easy bleeding General Surgery Exam Initial Vital Signs Temp Pulse Resp BP Pulse Ox 98.1 F 89 18 135/63 98 05/04/17 10:42 05/04/17 10:42 05/04/17 10:42 05/04/17 10:42 05/04/17 10:42 - General physical appearance well developed, well nourished, no distress, no pain - Eyes normal ocular movement - ENT atraumatic, normocephalic, CN 2-12 grossly intact - Neck trachea midline - Respiratory normal expansion, normal respiratory effort wheezing: right - Cardiovascular Cardiovascular exam: Present: RRR, no murmurs/rubs/gallops - Abdomen Abdomen general surgery: Present: bowel sounds present, soft, non tender. Absent: distended, guarding, rebound, surgical scars - Rectum Rectum: Absent: no bleeding - Integumentary Integumentary general surgery: Present: warm and dry - Neurologic Present: CN 2-12 grossly intact, normal coordination, normal sensation - Psychiatric Psychiatric general surgery: Present: speech is normal, memory intact Exam Initial Vital Signs Temp Pulse Resp BP Pulse Ox 98.1 F 89 18 135/63 98 05/04/17 10:42 05/04/17 10:42 05/04/17 10:42 05/04/17 10:42 05/04/17 10:42 Results - Labs 05/04/17 11:29 05/04/17 11:29 Abnormal lab results Hgb 10.9 g/dL (11.5-15.4) L 05/04/17 11:29 Hct 34.2 % (35.3-44.9) L 05/04/17 11:29 MCH 26.8 pg (28.0-33.3) L 05/04/17 11:29 Creatinine 1.16 mg/dL (0.57-1.11) H 05/04/17 11:29 Est GFR ( Amer) 53 (> 60) L 05/04/17 11:29 Est GFR (Non-Af Amer) 44 (> 60) L 05/04/17 11:29 Glucose 143 mg/dL (70-99) H 05/04/17 11:29 Stool Occult Blood Positive (Negative) A 05/04/17 12:03 All other labs normal. Consult Discharge Plan - Plan Referrals: [facility] ED CASE MANAGER [Primary Care Provider] - <Dean Pepe - Last Filed: 05/05/17 13:54> Date of Encounter: 05/04/17 Review of Systems All systems PM: A 10-system review of systems was performed and is negative for pertinent findings except as documented above in the HPI. General Surgery Exam Initial Vital Signs Temp Pulse Resp BP Pulse Ox 98.1 F 89 18 135/63 98 05/04/17 10:42 05/04/17 10:42 05/04/17 10:42 05/04/17 10:42 05/04/17 10:42 Exam Initial Vital Signs Temp Pulse Resp BP Pulse Ox 98.1 F 89 18 135/63 98 05/04/17 10:42 05/04/17 10:42 05/04/17 10:42 05/04/17 10:42 05/04/17 10:42 Results - Labs 05/05/17 13:07 05/05/17 03:12 Abnormal lab results RBC 3.26 M/mcL (3.82-4.97) L 05/05/17 03:12 Hgb 8.7 g/dL (11.5-15.4) L 05/05/17 13:07 Hct 27.4 % (35.3-44.9) L 05/05/17 13:07 MCH 26.7 pg (28.0-33.3) L 05/05/17 03:12 Est GFR (Non-Af Amer) 49 (> 60) L 05/05/17 03:12 Serum Total Protein 5.5 g/dL (6.0-8.3) L 05/05/17 03:12 Albumin 3.2 g/dL (3.5-5.0) L 05/05/17 03:12 Globulin 2.3 g/dL (2.4-3.5) L 05/05/17 03:12 Stool Occult Blood Positive (Negative) A 05/04/17 12:03 All other labs normal. - Attending Attestation I examined this patient and my medical decision-making was reviewed with the Resident Physician. I agree with the documented findings, disposition and treatment plan as described except to the extent set forth below. The patient is seen in evaluated with the resident. She has had rectal bleeding and now presents for colonoscopy. We will proceed with bowel preparation followed by colonoscopy tomorrow. Dean Pepe MD FACS
[2017-05-04] MEDS ORDERED: Polyethylene Glycol 3350 255 GM POWDER PO ONE (15:23)
[2017-05-04] MEDS: Pantoprazole 40 MG VIAL IVP SCH (18:13)
[2017-05-04] MEDS: 0.9 % Sodium Chloride 1,000 ML IVC SCH (21:10)
[2017-05-04 22:03] LABS: Hematocrit 28.9 % (35.3-44.9)
[2017-05-04 22:15] LABS: Hemoglobin 9.3 g/dL (11.5-15.4)
[2017-05-05 05:24] LABS: Basophils % 0.4 %; Eosinophils # 0.1 K/mcL (0.0-0.6); Eosinophils % 1.5 %; Hematocrit 27.2 % (35.3-44.9); Hemoglobin 8.7 g/dL (11.5-15.4); Immature Granulocytes % 0.2 % (0-4); Lymphocytes # 0.9 K/mcL (0.6-4.6); Lymphocytes % 19.5 %; Mean Corpuscular Hemoglobin 26.7 pg (28.0-33.3); Mean Corpuscular Volume 83.4 fL (83.0-100.0); Mean Platelet Volume 9.9 fL (9.4-12.4); Monocytes # 0.4 K/mcL (0.0-1.3); Monocytes % 7.4 %; Neutrophils # 3.3 K/mcL (1.6-8.9); Platelet Count 176 K/mcL (140-400); Red Blood Count 3.26 M/mcL (3.82-4.97); Red Cell Distribution Width 13.9 % (11.5-14.5)
[2017-05-05 05:34] LABS: Albumin 3.2 g/dL (3.5-5.0); Albumin/Globulin Ratio 1.4 (1.1-2.2); Bilirubin,Total 0.5 mg/dL (0.2-1.2); Calcium 9.1 mg/dL (8.6-10.8); Globulin 2.3 g/dL (2.4-3.5); Potassium 3.8 mEq/L (3.5-4.5); Total Protein 5.5 g/dL (6.0-8.3)
[2017-05-05] MEDS: Pantoprazole 40 MG VIAL IVP SCH ×2 (06:18→21:19)
[2017-05-05] MEDS: Aspirin 81 MG TAB.CHEW PO SCH (08:04)
--- NOTE | 2017-05-05 12:22 | Internal Med Progress Note ---
Date of Encounter: 05/05/17 Time of Encounter: 12:19 - Assessment and plan (1) Anemia due to acute blood loss Current Visit: Yes Status: Acute Assessment and plan: Acute Lower GI bleed Hb kept on dropping down..this morning @ 8.7 <-- 10.9 Cont close monitoring If Hb drops further down will give 1 U PRBC..goal to keep above 8.0 due to her age and cardiac history d/c ASA Patient does need to stay in the hospital more than 2 midnights due to her complex medical problems. So we will change her to full admission today. I did review my colleague Dr. Jennings's H & P including HPI, PMH, PSH, FH, SH, and ROS no changes noticed (2) GI bleeding Current Visit: Yes Status: Acute Assessment and plan: Could be diverticular vs hemorrhoidal cont NPO cont PPI scheduled for Colonoscopy today Qualifiers: Qualified Code(s): K92.2 - Gastrointestinal hemorrhage, unspecified (3) DVT prophylaxis Current Visit: Yes Status: Acute Assessment and plan: on SCD's only (4) Hx of CABG Current Visit: Yes Status: Acute Assessment and plan: resumed home med Metoprolol Held ASA due to GI bleed (5) Hypothyroidism Current Visit: Yes Status: Acute Assessment and plan: on Levothyroxine Qualifiers: Qualified Code(s): E03.9 - Hypothyroidism, unspecified - Subjective Interval history: Ms. Diaz is a 86 year old female with a PMH of asthma, CAD, HTN, fibromyalgia, hypothyroidism, CABG, hip replacement, and hysterectomy who presents this morning with a CC of GI bleeding x 2 episodes. She reports a medium melanic stool with the first BM and some bright red blood with the second. She has not had any additional BM's today. Denies any SOB, N/V/D, fevers, abdominal pain, anorexia, or dyspepsia. Admits to only new acute bleeding x2 episodes. Her medication list is limited as she only take a BB, ASA , and synthroid. Lab work in the ED unremarkable; does not appear anemic when compared to prior labs. H&H at baseline. Being admitted for further w/u and evaluation. Pt still has bright red blood per rectum. denied any CP / SOB / abdominal pain. Scheduled for colonoscopy today - Constitutional Vitals: Temp Pulse Resp BP Pulse Ox 98.3 F 75 15 138/66 96 05/05/17 10:42 05/05/17 10:42 05/05/17 10:42 05/05/17 10:42 05/05/17 10:42 General appearance: Present: cooperative, A&O X 3, no acute distress, answers questions appropriately - Head Head exam: Present: atraumatic, normal inspection - Respiratory Respiratory exam: Present: decreased breath sounds, wheezes. Absent: respiratory distress, rhonchi - Cardiovascular Cardiovascular exam: Present: RRR, +S1, +S2. Absent: systolic murmur - GI/Abdominal GI/Abdominal exam: Present: normal bowel sounds, soft. Absent: distended, rebound, rigid, tenderness - Extremities Exam Extremities exam: Absent: calf tenderness, pedal edema, tenderness - Neurological Exam Neurological exam: Present: alert, oriented X3 - Psychiatric Psychiatric exam: Present: normal affect, normal mood Internal Medicine: Result - Labs CBC & Chem 7: 05/05/17 03:12 05/05/17 03:12 Labs: Short CBC 05/04/17 05/05/17 Range/Units 21:57 03:12 WBC 4.7 (4.3-11.1) K/mcL Hgb 9.3 L D 8.7 L (11.5-15.4) g/dL Hct 28.9 L 27.2 L (35.3-44.9) % Plt Count 176 (140-400) K/mcL Neutrophils # 3.3 (1.6-8.9) K/mcL BMP 05/05/17 03:12 Sodium 141 Potassium 3.8 Chloride 108 Carbon Dioxide 26 BUN 13 Creatinine 1.05 Glucose 97 Calcium 9.1 Liver Function 05/05/17 Range/Units 03:12 Total Bilirubin 0.5 (0.2-1.2) mg/dL AST 15 (5-34) Units/L ALT 12 (0-55) Units/L Alkaline Phosphatase 62 (38-126) Units/L Albumin 3.2 L (3.5-5.0) g/dL - ABG Interpretation ABG results: PT/INR, D-dimer PT 9.9 Seconds (9.4-12.1) 05/04/17 11:29 Consult Discharge Plan - Plan Referrals: Leeth,Elmer E, [employer] [Primary Care Provider] - Prescriptions: Commode - Three In One [THREE IN ONE COMMODE] 1 each .ROUTE PRN PRN #1 each PRN Reason: Generalized Weakness
[2017-05-05] MEDS: 0.9 % Sodium Chloride 1,000 ML IVC SCH (13:11)
[2017-05-05 13:19] LABS: Hematocrit 27.4 % (35.3-44.9); Hemoglobin 8.7 g/dL (11.5-15.4)
[2017-05-05] MEDS ORDERED: Simethicone 40 MG/0.6 ML MLS IR ONE (13:45)
[2017-05-05] MEDS ORDERED: 0.9 % Sodium Chloride 1,000 ML IVC SCH (13:45)
--- NOTE | 2017-05-05 13:51 | Pre-Sedation Evaluation ---
Pre-sedation evaluation - Pre-sedation checklist Date of procedure: 05/05/17 Procedure: Rectal bleeding Recent Vitals: Last Vital Signs Temp 98.3 F 05/05/17 10:42 Pulse 75 05/05/17 10:42 Resp 15 05/05/17 10:42 BP 138/66 05/05/17 10:42 Pulse Ox 96 05/05/17 10:42 H&P (including ROS) documented in medical record: Yes Dietary Status: NPO after Midnight Airway Assessment: Patient can open mouth completely, TMJ function normal Dentition: No loose teeth or bridges Possible difficult airway: No ASA Classification *see protocol: CLASS III-Severe systemic disease Plan of Care: Pt appropriate candidate for procedure/moderate/conscious sedation , Risks/benefits of procedure/sedation discussed w/ patient/family
[2017-05-05] MEDS: *HR* FentaNYL (PF) 100 MCG/2 ML VIAL IVP PRN ×4 (14:20→14:43)
[2017-05-05] MEDS: *HR* Midazolam HCl 5 MG/5 ML VIAL IVP PRN ×3 (14:20→14:37)
[2017-05-06] MEDS: Pantoprazole 40 MG VIAL IVP SCH (05:55)
[2017-05-06] MEDS: 0.9 % Sodium Chloride 1,000 ML IVC SCH (05:55)
[2017-05-06 06:25] LABS: Hematocrit 24.8 % (35.3-44.9)
[2017-05-06] MEDS: Aspirin 81 MG TAB.CHEW PO SCH (07:39)
[2017-05-06 10:55] VITALS: BP 147/73
--- NOTE | 2017-05-06 11:46 | Discharge Summary ---
Date of Encounter: 05/06/17 Time of Encounter: 11:00 - Discharge Diagnosis (1) Anemia due to acute blood loss Priority: Primary Status: Acute (2) Diverticular hemorrhage Priority: Primary Status: Acute (3) GI bleeding Priority: Primary Status: Acute Qualifiers: Qualified Code(s): K92.2 - Gastrointestinal hemorrhage, unspecified (4) Hx of CABG Priority: Secondary Status: Acute (5) Hypothyroidism Priority: Secondary Status: Acute Qualifiers: Qualified Code(s): E03.9 - Hypothyroidism, unspecified - Discharge Medications Prescriptions: Bisacodyl [Dulcolax] 10 mg PO DAILY PRN #30 tab PRN Reason: Constipation Omeprazole [PriLOSEC] 40 mg PO DAILY #30 cap Polyethylene Glycol 3350 [MiraLAX] 17 gm PO DAILY PRN #20 powd.pack PRN Reason: Constipation Home Medications: Levothyroxine [Synthroid] 112 mcg PO QAM 01/23/17 [History] Aspirin 81 mg PO DAILY #30 tab.chew 01/24/17 [Rx] Metoprolol Tartrate [Lopressor] 50 mg PO DAILY 05/04/17 [History] Commode - Three In One [THREE IN ONE COMMODE] 1 each .ROUTE PRN PRN #1 each [Rx] Bisacodyl [Dulcolax] 10 mg PO DAILY PRN #30 tab 05/06/17 [Rx] Omeprazole [PriLOSEC] 40 mg PO DAILY #30 cap 05/06/17 [Rx] Polyethylene Glycol 3350 [MiraLAX] 17 gm PO DAILY PRN #20 powd.pack 05/06/17 [Rx ] Allergies/Adverse Reactions: 3 Allergy/AdvReac Type Severity Reaction Status Date / Time Penicillins Allergy Hives Verified 01/23/17 20:42 acetaminophen AdvReac Nausea Verified 01/23/17 20:42 [From Darvocet-N] codeine AdvReac Nausea Verified 01/23/17 20:42 propoxyphene AdvReac Nausea Verified 01/23/17 20:42 [From Darvocet-N] Date of admission: 05/05/17 12:16 Primary care physician: Elmer Garcia CNP - Patient Status Disposition: Home, Self-Care Condition: Good Overall status at discharge: patient is back to baseline - Discharge Instructions Instructions: Diverticulosis (DC), Diverticulosis Diet (GEN) Follow Up With: Elmer Garcia CNP [Primary Care Provider] - - Diet and Activity Activity: increase activity as tolerated Diet: low salt diet Hospital course: Ms. Diaz is a 86 year old female with a PMH of asthma, CAD, HTN, fibromyalgia, hypothyroidism, CABG, hip replacement, and hysterectomy who presents this morning with a CC of GI bleeding x 2 episodes. She reports a medium melanic stool with the first BM and some bright red blood with the second. She has not had any additional BM's today. Denies any SOB, N/V/D, fevers, abdominal pain, anorexia, or dyspepsia. Admits to only new acute bleeding x2 episodes. Her medication list is limited as she only take a BB, ASA , and synthroid. Lab work in the ED unremarkable; does not appear anemic when compared to prior labs. H&H at baseline. Being admitted for further w/u and evaluation. She was placed on NPO initially and started on IV hydration and PPI. Pt had another day of bright red blood per rectum. She was seen by surgery , who did colonoscopy found to have non thrombosed internal hemorrhoids and diverticulosis with out any infection and active bleeding. Pt was started on clear liquid diet which she tolerated well. She has not have any more bleeding, tolerating PO intake well and her Hb stayed stable around 8.0. So will d/c her home today in stable condition. - Time Spent with Patient Total time spent providing and/or coordinating discharge services: - Constitutional Vitals: Temp Pulse Resp BP Pulse Ox 98.8 F 75 14 147/73 93 05/06/17 10:54 05/06/17 10:54 05/06/17 10:54 05/06/17 10:54 05/06/17 10:54 General appearance: Present: cooperative, A&O X 3, no acute distress, answers questions appropriately - Head Head exam: Present: atraumatic, normal inspection - Respiratory Respiratory exam: Present: decreased breath sounds. Absent: rales, respiratory distress, rhonchi, wheezes - Cardiovascular Cardiovascular exam: Present: RRR, +S1, +S2. Absent: diastolic murmur, gallop, rubs, systolic murmur - GI/Abdominal GI/Abdominal exam: Present: normal bowel sounds, soft. Absent: rebound, rigid, tenderness - Extremities Exam Extremities exam: Absent: calf tenderness, pedal edema, tenderness - Neurological Exam Neurological exam: Present: alert, oriented X3 - Psychiatric Psychiatric exam: Present: normal affect, normal mood
== END 2017-05-06 13:50 | disposition home or self-care (01) ==
LOC: 3ANU 10:32 → EMEROO 10:32 → 3ANU 14:10 → SUATTDRO 05-05 12:16
PROVIDERS: ADMIT Internal Medicine; ATTEND Family Medicine